=== PATIENT | male | born 1990 | race Caucasian/White ===

== ENCOUNTER 2023-11-20 17:04 | Outpatient (REF) | payer BC, SELFPAY ==
[2023-11-20 17:16] LABS: MANUAL DIFF FLAG NO
[2023-11-20 17:40] LABS: Basophils Percent Auto 0.5 % (0-2); Eosinophils Absolute Auto 0.1 X10*3/uL (0.0-0.4); Eosinophils Percent Auto 0.8 % (0-4); Hematocrit 43.9 % (42.0-52.0); Hemoglobin 14.9 g/dl (14.0-18.0); Imm Gran Abs Auto 0.02 X10*3/uL (0.00-0.03); Imm Gran Pct Auto 0.3 % (0.0-0.4); Lymphocytes Absolute Auto 1.2 X10*3/uL (1.2-4.9); Mean Corpuscular HGB Conc 33.9 g/dl (31.0-36.0); Mean Corpuscular Hemoglobin 33.6 pg (27.0-33.0); Mean Corpuscular Volume 98.9 fL (80.0-98.0); Mean Platelet Volume 10.3 fL (9.4-12.4); Monocytes Absolute Auto 0.4 X10*3/uL (0.1-1.2); Monocytes Percent Auto 6.6 % (2-11); Neutrophils Absolute Auto 4.2 x10*3/uL (2.0-8.3); Neutrophils Percent Auto 70.8 % (45-73); Platelet Count 242 X10*3/uL (160-400); Red Blood Count 4.44 X10*6/uL (4.60-5.80); Red Cell Distribution Width 13.2 % (11.0-16.0); White Blood Count 5.9 X10*3/uL (4.8-10.8)
[2023-11-20 18:12] LABS: Alanine Aminotransferase 12 U/L (0-40); Albumin Level 4.7 g/dL (3.5-5.0); Alkaline Phosphatase 81 U/L (39-117); Aspartate Amino Transferase 22 U/L (5-37); Bilirubin Direct 0.4 mg/dL (0.0-0.5); Bilirubin Total 1.6 mg/dL (0.0-1.0); Total Protein 7.8 g/dL (6.5-8.0)
[2023-11-20 18:34] LABS: Vitamin B12 415 pg/mL (200-900)
== END 2023-11-20 17:05 | disposition home or self-care (01) ==
LOC: HO.LAB 17:04
PROVIDERS: PCP Internal Medicine; Visit Provider Internal Medicine
DX: K50.012 Crohn's disease of small intestine with intestinal obstruction (principal)
CPT/HCPCS: 36415; 80076; 80299; 82607; 85025

== ENCOUNTER 2024-07-29 16:51 | Outpatient (REF) | payer BC, SELFPAY ==
[2024-07-29 17:08] LABS: MANUAL DIFF FLAG NO
[2024-07-29 17:28] LABS: Basophils Percent Auto 0.4 % (0-2); Eosinophils Absolute Auto 0.1 X10*3/uL (0.0-0.4); Eosinophils Percent Auto 0.7 % (0-4); Hematocrit 41.4 % (42.0-52.0); Hemoglobin 14.5 g/dl (14.0-18.0); Imm Gran Abs Auto 0.04 X10*3/uL (0.00-0.03); Imm Gran Pct Auto 0.6 % (0.0-0.4); Lymphocytes Absolute Auto 1.2 X10*3/uL (1.2-4.9); Lymphocytes Percent Auto 17.5 % (20-40); Mean Corpuscular Hemoglobin 34.1 pg (27.0-33.0); Mean Corpuscular Volume 97.4 fL (80.0-98.0); Mean Platelet Volume 9.6 fL (9.4-12.4); Monocytes Absolute Auto 0.4 X10*3/uL (0.1-1.2); Monocytes Percent Auto 5.1 % (2-11); Neutrophils Absolute Auto 5.3 x10*3/uL (2.0-8.3); Neutrophils Percent Auto 75.7 % (45-73); Platelet Count 277 X10*3/uL (160-400); Red Blood Count 4.25 X10*6/uL (4.60-5.80); Red Cell Distribution Width 13.3 % (11.0-16.0)
[2024-07-29 18:06] LABS: Alanine Aminotransferase 16 U/L (0-40); Albumin Level 4.6 g/dL (3.5-5.0); Alkaline Phosphatase 78 U/L (39-117); Anion Gap 13 (12-20); Aspartate Amino Transferase 22 U/L (5-37); Bilirubin Total 1.6 mg/dL (0.0-1.0); Blood Urea Nitrogen 12 mg/dL (9-16); Carbon Dioxide 28 mmol/L (22-29); Chloride 104 mmol/L (96-108); Cholesterol 184 mg/dL (<200); Estimated Glomerular Filt Rate > 60; Glucose Random 93 mg/dL (60-115); Potassium 3.8 mmol/L (3.3-5.1); Sodium 141 mmol/L (135-145); Total Protein 7.6 g/dL (6.5-8.0)
--- OUTSIDE RECORDS SUMMARY | 2024-07-30 03:13 | XMS_ITS ---
Author Organization [facility] Address [address] [place] [address] [place] [address] Care Team Providers Care Helper Marble Finisher Name Role Phone Garo Mcknight MD Primary Care Provider J Luis Pelaez [phone] ALLERGIES No Known Allergies REASON FOR VISIT Patient presents today for crohn's MEDICATIONS Medication SIG (Take, Route, Fr equency, Duration) Notes Start Date End Date Status Tylenol 325 MG 1 tablet as needed O rally every 4 hrs PRN Active azaTHIOprine 75 MG 2 Orally Daily 01/14/2016 Active VITAL SIGNS BMI 24.95 kg/m2 06/03/2024 Blood pressure systolic 000 mm Hg 06/03/20 24 Blood pressure diastolic 00 mm Hg 024 Height 72.25 in 06/03/2024 Temperature 97.1 degrees Fahrenheit 06/03/20 24 Weight 185 lb 4 oz lbs 06/03/2024 Encounters Encounter Location Date Provider Diagnosis [facility] [address] [place] [phone] 06/03/2024 J Luis Trivedi Crohns disease of small intestine without complication K50.00 ASSESSMENTS Encounter Date Diagnosis Assessment Notes Treatment Notes Treatment Clinical Notes 06/03/2024 Crohns disease of small intestine without complication (ICD-10 - K50.00) Continue a low roughage diet--avoid raw vegetables and salads PLAN OF TREATMENT Medication Medication Name Sig Start Date Stop Date Notes azaTHIOprine 75 MG 2 Orally Daily 01/14/2016 Treatment Notes Assessment Notes Crohns disease of small inte manoj without complication Continue a low roughage diet--avoid ra w vegetables and salads Pending Test Test Name Order Date LIVER PROFILE 06/03/2024 CBC w DIFF 06/03/2024 Next Appt Details Follow Up: Spring 2024, Reas on: Provider Name:J Luis Trivedi , 12/23/2024 04:20:00 PM, [address], [address], [place], [address], Progress Notes * Examination Category Sub-Category Detail Notes General Examination GENERAL APPEARANCE: pleasant , well nourished, well developed, in no acute distress EYES: sclera non-icteric NECK/THYROID: no cervical lymphade nopathy, neck supple HEART: S1, S2 normal LUNGS: clear to auscultatio n bilaterally ABDOMEN: normal bowel sounds, no guarding or rigidity, no hepatosplenomegaly, no masses palpable, soft, nondistended, nontender NEUROLOGIC: alert and oriented SKIN: nonjaundiced, no spi ebonie angiomata. EXTREMITIES: no edema ORAL CAVITY: mucosa moist
--- OUTSIDE RECORDS SUMMARY | 2024-07-30 03:14 | XMS_ITS | Patient Health Record ---
Author Organization [facility] Address [address] [place] [address] Care Team Providers Care Integration Specialist Name Role Phone Garo Mcknight MD Primary Care Provider J Luis Pelaez Unavailable [phone] ALLERGIES No Known Allergies RESULTS Component Value Reference Range Notes Vitamin B12 Reviewed date:11/20/2023 07:51:59 PM Interpretation: Performing Lab:[facility], [address] [place] [phone] Notes/Report: Vitamin B12 415 200-900 pg/mL NORMAL 200-900 PG/ML INDETERMINATE 160-199 PG/ML DEFICIENT < 160 PG/ML Prom Thiopurine Metabolites Reviewed date:11/30/2023 12:59:01 AM Interpretation: Performing Lab:[facility], [address] [place] [phone] Notes/Report: Prom Thiopurine Metabolites SEE NOTE SEE SCANNED RESULTS IN EMR Complete Blood Count Auto Di ff Reviewed date:11/30/2023 12:59:41 AM Interpretation: Performing Lab:[facility], [address] [place] [phone] Notes/Report: White Blood Count 5.9 4.8-10.8 X10*3/uL Red Blood Count 4.44 4.60-5.80 X10*6/uL Hemoglobin 14.9 14.0-18.0 g/dl Hematocrit 43.9 42.0-52.0 % Mean Corpuscular Volume 98.9 80.0-98.0 fL Mean Corpuscular Hemoglobin 33.6 27.0-33.0 pg Mean Corpuscular HGB Conc 33.9 31.0-36.0 g/dl Red Cell Distribution Width 13.2 11.0-16.0 % Platelet Count 242 160-400 X10*3/uL Mean Platelet Volume 10.3 9.4-12.4 fL Neutrophils Percent Auto 70.8 45-73 % Imm Gran Pct Auto 0.3 0.0-0.4 % Lymphocytes Percent Auto 21.0 20-40 % Monocytes Percent Auto 6.6 2-11 % Eosinophils Percent Auto 0.8 0-4 % Basophils Percent Auto 0.5 0-2 % NRBC Pct Auto 0.0 0.0-0.2 /100WBC Neutrophils Absolute Auto 4.2 2.0-8.3 x10*3/u L Imm Gran Abs Auto 0.02 0.00-0.03 X10*3/uL Lymphocytes Absolute Auto 1.2 1.2-4.9 X10*3/u L Monocytes Absolute Auto 0.4 0.1-1.2 X10*3/uL Eosinophils Absolute Auto 0.1 0.0-0.4 X10*3/u L Basophils Absolute Auto 0.0 0.0-0.2 X10*3/uL NRBC Abs Auto 0.000 0.0-0.012 X10*3/uL Liver Panel Reviewed date:11/20/2023 06:17:01 PM Interpretation: Performing Lab:[facility], [address] [place] [phone] Notes/Report: Bilirubin Total 1.6 0.0-1.0 mg/dL Bilirubin Direct 0.4 0.0-0.5 mg/dL Aspartate Amino Transferase 22 5-37 U/L Alanine Aminotransferase 12 0-40 U/L Total Protein 7.8 6.5-8.0 g/dL Albumin Level 4.7 3.5-5.0 g/dL Alkaline Phosphatase 81 39-117 U/L REASON FOR REFERRAL No Information MEDICATIONS Medication SIG (Take, Route, Fr equency, Duration) Notes Start Date End Date Status Tylenol 325 MG 1 tablet as needed O rally every 4 hrs PRN Active azaTHIOprine 75 MG 2 Orally Daily 01/14/2016 Active IMMUNIZATIONS Vaccine Route Administration Date Status Comme nts Influenza Unknown 06/29/2020 Refused Influenza Unknown 05/22/2023 Refused Influenza Unknown 11/20/2023 Refused SOCIAL HISTORY Sex Assigned At : Social History Observation Description Sex Assigned At Unknown PROBLEMS Problem Type ICD Code Onset Dates Problem Status W/U Status Risk SNOMED Code Notes Problem Crohn's disease of small intestine without complications (K50.00) Active confirmed 45687048 Problem Crohn's disease of small intestine with intestinal obstruction (K50.012) Active confirmed 90616096 Problem Encounter for therapeutic drug level monitoring (Z51.81) Active confirmed 411699028 Problem Crohns disease of small intestine without complication (K50.00) Active confirmed 16638762 Problem Crohn's disease of small intestine without complication (K50.00) Active confirmed 06966140 Problem Crohn's disease of small intestine with complication (K50.019) Active confirmed 11210785 VITAL SIGNS Temperature 97.1 degrees Fahrenheit 06/03/2024 Blood pressure diastolic 00 mm Hg 06/03/2024 Height 72.25 in 06/03/2024 Blood pressure systolic 000 mm Hg 06/03/2024 Weight 185 lb 4 oz lbs 06/03/2024 BMI 24.95 kg/m2 06/03/2024 Encounters Encounter Location Date Provider Diagnosis [facility] [address] [place] [phone] 11/20/2023 J Luis Trivedi Crohn's disease of small intestine with intestinal obstruction K50.012 [facility] [address] [place] [phone] 06/03/2024 J Luis Trivedi Crohns disease of small intestine without complication K50.00 ASSESSMENTS Encounter Date Diagnosis Assessment Notes Treatment Notes Treatment Clinical Notes 11/20/2023 Crohn's disease of small intestine with intestinal obstruction (ICD-10 - K50.012) Continue the Azathioprine with two of the 75mg pills daily 06/03/2024 Crohns disease of small intestine without complication (ICD-10 - K50.00) Continue a low roughage diet--avoid raw vegetables and salads PLAN OF TREATMENT Pending Test Test Name Order Date LIVER PROFILE 08/04/2013 LIVER PROFILE 01/13/2019 LIVER PROFILE 11/20/2021 LIVER PROFILE 12/16/2014 LIVER PROFILE 09/19/2022 LIVER PROFILE 05/09/2012 LIVER PROFILE 02/15/2021 LIVER PROFILE 06/03/2024 LIVER PROFILE 06/13/2016 LIVER PROFILE 06/29/2020 LIVER PROFILE 02/02/2014 LIVER PROFILE 02/01/2016 LIVER PROFILE 12/18/2017 LIVER PROFILE 04/26/2015 LIVER PROFILE 05/22/2023 LIVER PROFILE 03/10/2020 LIVER PROFILE 04/05/2022 LIVER PROFILE 03/31/2013 LIVER PROFILE 08/21/2021 LIVER PROFILE 05/28/2014 LIVER PROFILE 05/18/2016 LIVER PROFILE 01/14/2017 LIVER PROFILE 11/20/2023 CRP 03/10/2020 CBC w DIFF 03/10/2020 CBC w DIFF 05/18/2016 CBC w DIFF 01/14/2017 CBC w DIFF 11/20/2023 CBC w DIFF 08/04/2013 CBC w DIFF 01/13/2019 CBC w DIFF 11/20/2021 CBC w DIFF 12/16/2014 CBC w DIFF 09/19/2022 CBC w DIFF 05/09/2012 CBC w DIFF 02/15/2021 CBC w DIFF 06/03/2024 CBC w DIFF 06/13/2016 CBC w DIFF 06/29/2020 CBC w DIFF 02/02/2014 CBC w DIFF 02/01/2016 CBC w DIFF 12/18/2017 CBC w DIFF 04/26/2015 CBC w DIFF 12/31/2020 CBC w DIFF 05/22/2023 CBC w DIFF 04/05/2022 CBC w DIFF 03/31/2013 CBC w DIFF 08/21/2021 CBC w DIFF 05/28/2014 SED RATE (ESR) 03/10/2020 PROMETHEUS THIOPURINE METABOLITES (TPMT) 05/18/2016 PROMETHEUS THIOPURINE METABOLITES (TPMT) 01/14/2017 PROMETHEUS THIOPURINE METABOLITES (TPMT) 01/13/2019 PROMETHEUS THIOPURINE METABOLITES (TPMT) 06/13/2016 PROMETHEUS THIOPURINE METABOLITES (TPMT) 12/18/2017 PROMETHEUS THIOPURINE METABOLITES (TPMT) 12/11/2015 PROMETHEUS THIOPURINE METABOLITES (TPMT) 12/31/2020 PROMETHEUS TPMT ENZYME 12/11/2015 PROMETHEUS TPMT GENETICS 12/11/2015 Liver Panel 12/31/2020 Vitamin B12 04/05/2022 Prom Thiopurine Metabolites 11/20/2021 Next Appt Details Provider Name:J Luis Trivedi , 12/23/2024 04:20:00 PM, [address], [address], [place], [address], Insurance Providers Payer Name Payer Address Payer Phone Subscriber Number Group Number Insured Name Patient Relationship to Insured Coverage Start Date Coverage End Date [facility] [address] [place], [place] [id number] [phone] [id number] PAUL RICH Self - patient is the insured MEDICAL (GENERAL) HISTORY Medical History History ICD Code Crohn's disease-dx'd in 02/05 09 with colonoscopy revealing ileal involvement, but a normal colon. He was on a course of prednisone at that time, but started azathioprine in 01/2009 Denies SD,DM,CVA,Lung disease,renal dise ase Small bowel series 04/2013 wi th active Crohn's, ileal fistulae, and some narrowing of TI-no obstruction--started on Humira injections in fall but stopped them on his own in approx. 01/2014. His [facility] labs showed him to have normal enzyme activity for the azathioprine. He was hospitalized in November of 2015 with a flare of his Crohn's disease that responded well to a course of steroids Flare of his Crohn's disease in summer after he was off his azathioprine(he ran out of it). He was treated with a course of prednisone and restarted on his azathioprine at that time with good results Surgical History Surgery Date(Month/Year)
--- OUTSIDE RECORDS SUMMARY | 2024-07-30 03:14 | XMS_ITS ---
Author Organization [facility] Address [address] [place] [address] Care Team Providers Care Facility Service Manager Name Role Phone Garo Mcknight MD Primary Care Provider J Luis Pelaez Unavailable [phone] ALLERGIES No Known Allergies RESULTS Component Value Reference Range Notes Vitamin B12 Reviewed date:11/20/2023 07:51:59 PM Interpretation: Performing Lab:[facility], [address] [place] [phone] Notes/Report: Vitamin B12 415 200-900 pg/mL NORMAL 200-900 PG/ML INDETERMINATE 160-199 PG/ML DEFICIENT < 160 PG/ML Prom Thiopurine Metabolites Reviewed date:11/30/2023 12:59:01 AM Interpretation: Performing Lab:[facility], [address] [place] [phone] Notes/Report: Prom Thiopurine Metabolites SEE NOTE SEE SCANNED RESULTS IN EMR REASON FOR VISIT Patient presents today for crohn's MEDICATIONS Medication SIG (Take, Route, Fr equency, Duration) Notes Start Date End Date Status Tylenol 325 MG 1 tablet as needed O rally every 4 hrs PRN Active azaTHIOprine 75 MG 2 Orally QD 01/14/2016 Active IMMUNIZATIONS Vaccine Route Administration Date Status Comme nts Influenza Unknown 11/20/2023 Refused VITAL SIGNS BMI 24.91 kg/m2 11/20/2023 Blood pressure systolic 000 mm Hg 11/20/19 24 Blood pressure diastolic 00 mm Hg 024 Height 72.25 in 11/20/2023 Temperature 97.3 degrees Fahrenheit 11/20/19 24 Weight 185 lbs 11/20/2023 Encounters Encounter Location Date Provider Diagnosis [facility] [address] [place] [address] 11/20/2023 J Luis Trivedi Crohn's disease of small intestine with intestinal obstruction K50.012 ASSESSMENTS Encounter Date Diagnosis Assessment Notes Treatment Notes Treatment Clinical Notes 11/20/2023 Crohn's disease of small intestine with intestinal obstruction (ICD-10 - K50.012) Continue the Azathioprine with two of the 75mg pills daily PLAN OF TREATMENT Treatment Notes Assessment Notes Crohn's disease of small int estine with intestinal obstruction Continue the Azathioprine with two of th e 75mg pills daily Pending Test Test Name Order Date LIVER PROFILE 11/20/2023 CBC w DIFF 11/20/2023 Next Appt Details Follow Up: 6 Months, Reason: Provider Name:J Luis Trivedi , 12/23/2024 04:20:00 PM, [address], [address], [place], [address], Progress Notes * Examination Category Sub-Category Detail [...]
--- OUTSIDE RECORDS SUMMARY | 2024-07-30 03:14 | XMS_ITS ---
Author Organization [facility] Address [address] [place] [address] Care Team Providers Care Manager Play Name Role Phone Garo Mcknight MD Primary Care Provider J Luis Pelaez Unavailable [phone] ALLERGIES No Known Allergies REASON FOR VISIT Patient presents today for crohn's MEDICATIONS Medication SIG (Take, Route, Fr equency, Duration) Notes Start Date End Date Status azaTHIOprine 75 MG 2 Orally QD 01/14/2016 Active Tylenol 325 MG 1 tablet as needed O rally every 4 hrs PRN Active IMMUNIZATIONS Vaccine Route Administration Date Status Comme nts Influenza Unknown 05/22/2023 Refused VITAL SIGNS BMI 25.32 kg/m2 05/22/2023 Blood pressure systolic 000 mm Hg 05/22/20 23 Blood pressure diastolic 00 mm Hg 023 Height 72.25 in 05/22/2023 Temperature 98.2 degrees Fahrenheit 05/22/20 23 Weight 188 lbs 05/22/2023 Encounters Encounter Location Date Provider Diagnosis [facility] [address] [place] [phone] 05/22/2023 J Luis Trivedi Crohns disease of small intestine without complication K50.00 and Encounter for therapeutic drug level monitoring Z51.81 ASSESSMENTS Encounter Date Diagnosis Assessment Notes Treatment Notes Treatment Clinical Notes 05/22/2023 Crohns disease of small intestine without complication (ICD-10 - K50.00) Continue the Azathioprine 150mg daily Avoid Ibuprofen and other NSAIDs. Tyenol/Acetaminophe n is OK 05/22/2023 Encounter for therapeutic drug level monitoring (ICD-10 - Z51.81) PLAN OF TREATMENT Treatment Notes Assessment Notes Crohns disease of small inte manoj without complication Continue the Azathioprine 150mg daily Avoid Ibuprofen and other NSAIDs. Tyenol/Acetaminophen is OK Pending Test Test Name Order Date LIVER PROFILE 05/22/2023 CBC w DIFF 05/22/2023 Next Appt Details Follow Up: 6 Months, Reason: Provider Name:J Luis Trivedi , 12/23/2024 04:20:00 PM, [address], [address], [place], [address], Progress Notes * Examination Category Sub-Category Detail [...]
== END 2024-07-29 16:52 | disposition home or self-care (01) ==
LOC: HO.LAB 16:51
PROVIDERS: PCP Internal Medicine; Visit Provider Internal Medicine
DX: K50.90 Crohn's disease, unspecified, without complications (principal)
CPT/HCPCS: 36415; 80053; 82465; 85025

== ENCOUNTER 2024-12-22 11:42 | Outpatient (REF) | payer BC, SELFPAY ==
[2024-12-22 11:50] LABS: MANUAL DIFF FLAG NO
[2024-12-22 12:18] LABS: Basophils Percent Auto 0.3 % (0-2); Eosinophils Absolute Auto 0.1 X10*3/uL (0.0-0.4); Eosinophils Percent Auto 0.9 % (0-4); Hematocrit 41.6 % (42.0-52.0); Hemoglobin 14.6 g/dl (14.0-18.0); Imm Gran Abs Auto 0.02 X10*3/uL (0.00-0.03); Imm Gran Pct Auto 0.3 % (0.0-0.4); Lymphocytes Absolute Auto 0.8 X10*3/uL (1.2-4.9); Lymphocytes Percent Auto 13.7 % (20-40); Mean Corpuscular HGB Conc 35.1 g/dl (31.0-36.0); Mean Corpuscular Hemoglobin 34.2 pg (27.0-33.0); Mean Corpuscular Volume 97.4 fL (80.0-98.0); Mean Platelet Volume 9.5 fL (9.4-12.4); Monocytes Absolute Auto 0.3 X10*3/uL (0.1-1.2); Neutrophils Absolute Auto 4.6 x10*3/uL (2.0-8.3); Neutrophils Percent Auto 79.8 % (45-73); Platelet Count 280 X10*3/uL (160-400); Red Blood Count 4.27 X10*6/uL (4.60-5.80); Red Cell Distribution Width 13.4 % (11.0-16.0); White Blood Count 5.8 X10*3/uL (4.8-10.8)
[2024-12-22 12:58] LABS: Alanine Aminotransferase 14 U/L (0-40); Albumin Level 4.6 g/dL (3.5-5.0); Aspartate Amino Transferase 20 U/L (5-37); Bilirubin Direct 0.4 mg/dL (0.0-0.5); Bilirubin Total 1.5 mg/dL (0.0-1.0); Total Protein 7.3 g/dL (6.5-8.0)
--- OUTSIDE RECORDS SUMMARY | 2024-12-22 13:21 | XMS_ITS ---
Author Organization [facility] Address [address] [place] [address] Care Team Providers Care Turf Farmer Name Role Phone Garo Mcknight MD Primary Care Provider J Luis Pelaez Unavailable [phone] Allergies No Known Allergies REASON FOR VISIT Patient presents today for crohn's Medications Medication SIG (Take, Route, Fr equency, Duration) Notes Start Date End Date Status Tylenol 325 MG 1 tablet as needed O rally every 4 hrs PRN Active azaTHIOprine 75 MG 2 Orally Daily 01/14/2016 Active Vital Signs Temperature 97.1 degrees Fahrenheit 06/03/20 24 Blood pressure systolic 000 mm Hg 06/03/20 24 Blood pressure diastolic 00 mm Hg 024 Height 72.25 in 06/03/2024 Weight 185 lb 4 oz lbs 06/03/2024 BMI 24.95 kg/m2 06/03/2024 Encounters Encounter Location Date Provider Diagnosis [facility] [address] [place] [id number] 06/03/2024 J Luis Trivedi Crohns disease of small intestine without complication K50.00 Assessments Encounter Date Diagnosis (ICD Code) Assessment Notes Treatment Notes Treatment Clinical Notes Section Notes 06/03/2024 Crohns disease of small intestine without complication (ICD-10 - K50.00) Continue a low roughage diet--avoid raw vegetables and salads Overall, Parmjit appears to be doing well in regard to his underlying Crohn's disease on his current regimen of the azathioprine. He is not having any adverse effects based on his laboratories earlier in the year, his clinical history, and his excellent clinical appearance. He has not needed any prednisone for about 4 years now. I did advise him to continue the azathioprine at the current regimen of 150 mg daily but have given him a new lab slip to do laboratories as soon as possible in regard to a CBC and liver profile, and then do those laboratories every 2 months thereafter to be sure things are remaining stable in that regard. I did remind him to stay on a low roughage diet given his small bowel Crohn's Disease. If things remains stable I will plan to see Parmjit in the spring for a followup visit. I did advise him to contact me prior to that if he has any problems or questions I can be of assistance with. Parmjit was comfortable with this plan. Thank you again for allowing me to participate in Parmjit's care. I shall continue to keep you advised of his progress. Plan Of Treatment Medication Medication Name Sig Start Date Stop [...] Luis Trivedi , 12/23/2024 04:20:00 PM, [address], [address], [place], [address], Progress Notes * PAUL RICHDOB: 0 (33 yo M)Acc No.[id number]:06/03/2024 Progress Notes Patient:?PAUL RICH Provider:?J Luis Trivedi MD :1990???Age:33 Y???Sex:Male Arnoldo e:06/03/2024 Address:[address] [place] [address] Pcp:Garo Mcknight MD Subjective: * Chief Complaints: * ???Patient presents today fo r crohn's * HPI: ???incontinence:? I saw Parmjit in followup today in regard to his underlying history of Crohn's disease. ?Since I last saw Parmjit in November he has been feeling well on his regimen of azathioprine 150 mg daily. He enjoys a good appetite and denies any problems with abdominal pain, abdominal distention, nausea, vomiting, constipation, nor significant diarrhea. In general, his bowel movements are regular and without any signs of bleeding. He denies any significant heartburn, dysphagia, early satiety, or jaundice. He denies any fevers, jaundice, nor any other signs or history of infection. ?His laboratories in November after the office visit showed a stable CBC with a hemoglobin of 14.9 and white blood cell count 5.9 with a normal differential, normal liver profile, normal B12 level, and a low therapeutic level of the azathioprine metabolite. Given his stable course I did not feel that the dose of the azathioprine had to be increased at that time. * ROS:?General/Constitutional:?Change in appetite?denies.?Chills?denies.?Fatigue?denies.?Ophthalmologic:?Patient denies? Negative..?ENT:?Patient denies?Negative..?Respiratory:?Patient denies?No coughing/hemoptysis..?Cardiovascular:?Patient denies? No chest pain/orthopnea..?Gastrointestinal:?Comments?See HPI for details.?Genitourinary:?Patient denies? No dysuria/hematuria..?Musculoskeletal:?Patient denies? No specific arthralgias/myalgias..?Skin:?Patient denies?No rash/pruritus..?Neurologic:?Patient denies? No headaches/seizures..?Psychiatric:?Patient denies?Negative..? * Medical History:? * Surgical History:?No Surgica l History documented. * Hospitalization/Major Diagno stic Procedure:?No Hospitalization History. * Family History:?Father: rosi david?Mother: alive.?Paternal Grand Father: , diagnosed with Diabetes.?Paternal Grand Mother: alive, diagnosed with Diabetes.? Patient denies family history of colorectal cancer, colon polyps or liver ds. * Social History:?Tobacco Use:?Tobacco Use/Smoking?Are you a: nonsmoker.?Drugs/Alcohol:?Alcohol Screen?Points: 0, Interpretation: Negative.?Miscellaneous:?Marital status: single. 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 ???Patient recieved his Masters in Criminal Justice in 07/2013. Nonsmoker, no significant alcohol. * Medications:?TakingTylenol 3 25 MG Tablet 1 tablet as needed Orally every 4 hrs, Notes: PRNazaTHIOprine 75 MG Tablet 2 Orally QDMedication List reviewed and reconciled with the patientTaking Tylenol 325 MG Tablet 1 tablet as needed Orally every 4 hrs, Notes: PRNTaking azaTHIOprine 75 MG Tablet 2 Orally QDMedication List reviewed and reconciled with the patient * Allergies:?N.K.D.A.yes[Aller gies Verified] Objective: * Vitals:?Wt: 185 lb 4 oz, Ht: 72.25 in, BMI:24.95 Index, BP: 000/00 mm Hg, Temp: 97.1. * Examination: ???General Examination: ?GENERAL APPEARANCE:?pleasant, well nourished, well developed, in no acute distress.?EYES:?sclera non-icteric.?ORAL CAVITY:?mucosa moist.?NECK/THYROID:?no cervical lymphadenopathy, neck supple.?SKIN:?nonjaundiced, no spider angiomata..?HEART:?S1, S2 normal.?LUNGS:?clear to auscultation bilaterally.?ABDOMEN:?normal bowel sounds, no guarding or rigidity, no hepatosplenomegaly, no masses palpable, soft, nondistended, nontender.?EXTREMITIES:?no edema.?NEUROLOGIC:?alert and oriented.? Assessment: * Assessment: 1.?Crohns disease of small i ntestine without complication - K50.00 (Primary)? Overall, Parmjit appears to be d oing well in regard to his underlying Crohn's disease on his current regimen of the azathioprine. He is not having any adverse effects based on his laboratories earlier in the year, his clinical history, and his excellent clinical appearance. He has not needed any prednisone for about 4 years now. I did advise him to continue the azathioprine at the current regimen of 150 mg daily but have given him a new lab slip to do laboratories as soon as possible in regard to a CBC and liver profile, and then do those laboratories every 2 months thereafter to be sure things are remaining stable in that regard. I did remind him to stay on a low roughage diet given his small bowel Crohn's Disease. If things remains stable I will plan to see Parmjit in the spring for a followup visit. I did advise him to contact me prior to that if he has any problems or questions I can be of assistance with. Parmjit was comfortable with this plan. Thank you again for allowing me to participate in Parmjit's care. I shall continue to keep you advised of his progress. Plan: * Treatment: ?LAB: CBC w DIFF* Do every other month Notes: Continue a low roughage diet--avoid raw vegetables and salads?? 2.?Others? Continue azaTHIOprine Tablet, 75 MG, 2, Orally, Daily.?? * Procedure Codes:?1036F TOBAC CO NON-[id number] BP SCR NOT PRFRM REC REASON NOS * Preventive Medicine:? ??Counseling:?Care goal follow-up plan:?Above Normal BMI Follow-up?Giving encouragement to exercise,?BMI management provided?Yes.? * Follow Up:?Spring 2024 * * Sign off status: Completed true * Provider:?J Luis Trivedi MD Date:? 024 Generated for Padmini cruz/Dejuan/Willian on:?12/22/2024 01:21 PM EDT History and Physical Notes * HPI (History of Present Illness) Category Sub-Category Detail Notes Category Not es incontinence I saw Parmjit in followup today in regard to his underlying history of Crohn's disease. Since I last saw Parmjit in November he has been feeling well on his regimen of azathioprine 150 mg daily. He enjoys a good appetite and denies any problems with abdominal pain, abdominal distention, nausea, vomiting, constipation, nor significant diarrhea. In general, his bowel movements are regular and without any signs of bleeding. He denies any significant heartburn, dysphagia, early satiety, or jaundice. He denies any fevers, jaundice, nor any other signs or history of infection. His laboratories in November after the office visit showed a stable CBC with a hemoglobin of 14.9 and white blood cell count 5.9 with a normal differential, normal liver profile, normal B12 level, and a low therapeutic level of the azathioprine metabolite. Given his stable course I did not feel that the dose of the azathioprine had to be increased at that time. Examination Category Sub-Category Detail Notes Category Not es General Examination GENERAL APPEARANCE: pleasant , well [...]
--- OUTSIDE RECORDS SUMMARY | 2024-12-22 13:21 | XMS_ITS | Patient Health Record ---
Author Organization [facility] Address [address] [place] [address] Care Team Providers Care Rigging Loft Repairer Name Role Phone Garo Mcknight MD Primary Care Provider Jim chinchilla Trivedi J Luis Unavailable [phone] Allergies No Known Allergies Results Component Value Reference Range Notes Complete Blood Count Auto Di ff (Not yet reviewed by provider) Interpretation: Performing Lab:[facility], [address] [place] [phone] Notes/Report: White Blood Count 5.8 4.8-10.8 X10*3/uL Red Blood Count 4.27 4.60-5.80 X10*6/uL Hemoglobin 14.6 14.0-18.0 g/dl Hematocrit 41.6 42.0-52.0 % Mean Corpuscular Volume 97.4 80.0-98.0 fL Mean Corpuscular Hemoglobin 34.2 27.0-33.0 pg Mean Corpuscular HGB Conc 35.1 31.0-36.0 g/dl Red Cell Distribution Width 13.4 11.0-16.0 % Platelet Count 280 160-400 X10*3/uL Mean Platelet Volume 9.5 9.4-12.4 fL Neutrophils Percent Auto 79.8 45-73 % Imm Gran Pct Auto 0.3 0.0-0.4 % Lymphocytes Percent Auto 13.7 20-40 % Monocytes Percent Auto 5.0 2-11 % Eosinophils Percent Auto 0.9 0-4 % Basophils Percent Auto 0.3 0-2 % NRBC Pct Auto 0.0 0.0-0.2 /100WBC Neutrophils Absolute Auto 4.6 2.0-8.3 x10*3/u L Imm Gran Abs Auto 0.02 0.00-0.03 X10*3/uL Lymphocytes Absolute Auto 0.8 1.2-4.9 X10*3/u L Monocytes Absolute Auto 0.3 0.1-1.2 X10*3/uL Eosinophils Absolute Auto 0.1 0.0-0.4 X10*3/u L Basophils Absolute Auto 0.0 0.0-0.2 X10*3/uL NRBC Abs Auto 0.000 0.0-0.012 X10*3/uL Reason For Referral No Information Medications Medication SIG (Take, Route, Fr equency, Duration) Notes Start Date End Date Status Tylenol 325 MG 1 tablet as needed O rally every 4 hrs PRN Active azaTHIOprine 75 MG 2 Orally Daily 01/14/2016 Active Immunizations Vaccine Route Administration Date Status Comme nts Influenza Unknown 06/29/2020 Refused Influenza Unknown 05/22/2023 Refused Influenza Unknown 11/20/2023 Refused Problems Problem Type SNOMED Code ICD Code Onset Dates Problem Status W/U Status Risk Notes Problem 92252427 Crohn's disease of small intestine without complications (K50.00) Active confirmed Problem 33899065 Crohn's disease of small intestine with intestinal obstruction (K50.012) Active confirmed Problem 169429724 Encounter for therapeutic drug level monitoring (Z51.81) Active confirmed Problem 16121909 Crohns disease o f small intestine without complication (K50.00) Active confirmed Problem 36721086 Crohn's disease of small intestine without complication (K50.00) Active confirmed Problem 82696956 Crohn's disease of small intestine with complication (K50.019) Active confirmed Vital Signs Temperature 97.1 degrees Fahrenheit 06/03/2024 Blood pressure diastolic 00 mm Hg 06/03/2024 Height 72.25 in 06/03/2024 Blood pressure systolic 000 mm Hg 06/03/2024 Weight 185 lb 4 oz lbs 06/03/2024 BMI 24.95 kg/m2 06/03/2024 Encounters Encounter Location Date Provider Diagnosis [facility] [address] [place] [address] 06/03/2024 J Luis Trivedi Crohns disease of [...] advised of his progress. Plan Of Treatment Pending Test Test Name Order Date LIVER PROFILE 02/02/2014 LIVER PROFILE 06/13/2016 LIVER PROFILE 11/20/2021 LIVER PROFILE 11/20/2023 LIVER PROFILE 03/10/2020 LIVER PROFILE 02/15/2021 LIVER PROFILE 01/14/2017 LIVER PROFILE 04/26/2015 LIVER PROFILE 09/19/2022 LIVER PROFILE 08/04/2013 LIVER PROFILE 05/09/2012 LIVER PROFILE 12/16/2014 LIVER PROFILE 01/13/2019 LIVER PROFILE 05/18/2016 LIVER PROFILE 06/03/2024 LIVER PROFILE 04/05/2022 LIVER PROFILE 02/01/2016 LIVER PROFILE 08/21/2021 LIVER PROFILE 05/22/2023 LIVER PROFILE 06/29/2020 LIVER PROFILE 05/28/2014 LIVER PROFILE 12/18/2017 LIVER PROFILE 03/31/2013 CRP 03/10/2020 CBC w DIFF 12/31/2020 CBC w DIFF 12/18/2017 CBC w DIFF 03/31/2013 CBC w DIFF 02/02/2014 CBC w DIFF 06/13/2016 CBC w DIFF 11/20/2021 CBC w DIFF 11/20/2023 CBC w DIFF 02/15/2021 CBC w DIFF 01/14/2017 CBC w DIFF 04/26/2015 CBC w DIFF 09/19/2022 CBC w DIFF 08/04/2013 CBC w DIFF 03/10/2020 CBC w DIFF 05/09/2012 CBC w DIFF 12/16/2014 CBC w DIFF 01/13/2019 CBC w DIFF 05/18/2016 CBC w DIFF 06/03/2024 CBC w DIFF 04/05/2022 CBC w DIFF 02/01/2016 CBC w DIFF 08/21/2021 CBC w DIFF 05/22/2023 CBC w DIFF 06/29/2020 CBC w DIFF 05/28/2014 SED RATE (ESR) 03/10/2020 PROMETHEUS THIOPURINE METABOLITES (TPMT) 12/31/2020 PROMETHEUS THIOPURINE METABOLITES (TPMT) 12/18/2017 PROMETHEUS THIOPURINE METABOLITES (TPMT) 06/13/2016 PROMETHEUS THIOPURINE METABOLITES (TPMT) 01/14/2017 PROMETHEUS THIOPURINE METABOLITES (TPMT) 12/11/2015 PROMETHEUS THIOPURINE METABOLITES (TPMT) 01/13/2019 PROMETHEUS THIOPURINE METABOLITES (TPMT) 05/18/2016 PROMETHEUS TPMT ENZYME 12/11/2015 PROMETHEUS TPMT GENETICS 12/11/2015 Complete Blood Count Auto Diff 5 Liver Panel 12/31/2020 Vitamin B12 04/05/2022 Prom Thiopurine Metabolites 11/20/2021 Next Appt Details Provider Name:J Luis Trivedi , 12/23/2024 04:20:00 PM, [address] [place] [address], [facility] [address], [place], [address], Insurance Providers Payer Name Payer Address Payer Phone Subscriber Number Group Number Insured Name Patient Relationship to Insured Coverage Start Date Coverage End Date [facility] [address] [place], [place] [id number] PAUL RICH Self - patient is the insured Medical (General) History Medical History History ICD Code Crohn's disease-dx'd in 02/05 09 with colonoscopy revealing ileal involvement, but a normal colon. He was on a course of prednisone at that time, but started azathioprine in 01/2009 Denies VA,DM,CVA,Lung disease,renal dise ase Small bowel series 04/2013 [...]
--- OUTSIDE RECORDS SUMMARY | 2024-12-22 13:21 | XMS_ITS | Encounter Summary ---
Author Organization [facility] Address [address] [place] [phone] Phone Care Team Providers Care Hydroelectric Production Manager Name Role Phone Wilbur Nieto MD Primary Care Provider Jose amato Encounter Details Date Type Department Care Team (Late st Contact Info) Description 04/04/2017 Conversion Encounter [facility] - [address] [address] Social History Tobacco Use Types Packs/Day Years Used Date Smoking Tobacco: Never Assessed Sex and Gender Information Value Date Recorded Sex Assigned at Not on file Legal Sex Male 4:12 PM EDT Gender Identity Not on file Sexual Orientation Not on file documented as of this encounter Plan of Treatment Not on file documented as of this encounter Visit Diagnoses Not on filedocumented in this encounter Care Teams Hydroelectric Production Manager Relationship Specialty Start Date End Date Wilbur Nieto MD PCP - General 03/29/17 11/20/22 documented as of this encounter
--- OUTSIDE RECORDS SUMMARY | 2024-12-22 13:21 | XMS_ITS | Clinical Summary ---
Author Organization [facility] Address [address] [place] [phone] Phone Care Team Providers Care Commercial Loan Manager Name Role Phone Unavailable Primary Care Provider Unavailabl e Immunizations Immunization Administration Dates Next Due DTP 12/17/1994, 1,07/19/1990,1989,02/16/1990 Hep B, ped/adol 07/02/2001,12/30/2000,11/20/2000 Hib (PRP-T) 07/19/1990,03/19/1990 Influenza Split 06/23/2002,07/20/1999 Influenza, injectable, trivalent 005,06/15/2004,06/23/2002,1998 MMR 12/17/1994,03/19/1991 OPV 12/17/1994, 1,04/19/1990,1989 Td (adult) (MBL), 2 Lf tetan us toxoid, PF, adsorbed 07/02/2001 Family History Relation Name Status Comments Father Alive Father: Alive a nd well Mother Alive Mother: ? diabe víctor Social History Tobacco Use Types Packs/Day Years Used Date Smoking Tobacco: Never Assessed Sex and Gender Information Value Date Recorded Sex Assigned at Not on file Legal Sex Male 4:12 PM EDT Gender Identity Not on file Sexual Orientation Not on file Plan of Treatment Health Maintenance Due Date Last Done Comments DTaP,Tdap,and Td Vaccines (6 - Tdap) 07/03/2001 07/02/2001, 12/17/1994, 07/19/1991, Additional history exists Varicella Vaccines (1 of 2 - 13+ 2-dose series) 2002 Influenza Vaccines (#1) 2024 06/07/20 05, 06/15/2004, 06/23/2002, Additional history exists COVID-19 Vaccine ( season) 2024 HIB Vaccines Aged Out 07/19/1990, 03/19/1990 No lo nger eligible based on patient's age to complete this topic IPV Vaccines Completed 12/17/1994, 08/1990, 04/19/1990, Additional history exists MMR Vaccines Completed 12/17/1994, 03/19/1991 Hepatitis B Vaccines Completed 07/02/2001, 12/30/2000, 11/20/2000 HPV Vaccines Aged Out No longer eligi ble based on patient's age to complete this topic Hepatitis A Vaccines Aged Out No long er eligible based on patient's age to complete this topic Men B Vaccine Aged Out No longer elig ible based on patient's age to complete this topic Meningococcal Vaccine Aged Out No marlon marlee eligible based on patient's age to complete this topic Pneumococcal Vaccine Aged Out No long er eligible based on patient's age to complete this topic
--- OUTSIDE RECORDS SUMMARY | 2024-12-22 13:21 | XMS_ITS | Clinical Summary ---
Author Organization [facility] Address [address] [place] [address] Care Team Providers Care Senior Relationship Manager Name Role Phone Unavailable Primary Care Provider Unavailabl e Social History Tobacco Use Types Packs/Day Years Used Date Smoking Tobacco: Never Assessed Sex and Gender Information Value Date Recorded Sex Assigned at Not on file Legal Sex Male 6:37 PM EST Gender Identity Not on file Sexual Orientation Not on file Plan of Treatment Health Maintenance Due Date Last Done Comments DTaP,Tdap,and Td Vaccines (1 - Tdap) 2008 Hepatitis B Vaccines (1 of 3 - 19+ 3-dose series) 2008 COVID-19 Vaccine (2023-2 5 season) 2024 Influenza Vaccine (Season Ended) 2025 HIB Vaccines Aged Out No longer eligi ble based on patient's age to complete this topic HPV Vaccines Aged Out No longer eligi ble based on patient's age to complete this topic Hepatitis A Vaccines Aged Out No long er eligible based on patient's age to complete this topic IPV Vaccines Aged Out No longer eligi ble based on patient's age to complete this topic MMR Vaccines Aged Out No longer eligi ble based on patient's age to complete this topic Meningococcal ACWY Vaccine Aged Out N o longer eligible based on patient's age to complete this topic Meningococcal B Vaccine Aged Out No l onger eligible based on patient's age to complete this topic Pneumococcal Vaccine: Pediat rics (0 to 5 Years) and At-Risk Patients (6 to 64 Years) Aged Out No longer eligible b ased on patient's age to complete this topic RSV Immunization Patients Un ebonie 20 months Aged Out No longer eligible b ased on patient's age to complete this topic Varicella Vaccines Aged Out No longer eligible based on patient's age to complete this topic
--- OUTSIDE RECORDS SUMMARY | 2024-12-22 13:22 | XMS_ITS ---
Author Organization [facility] Address [address] [place] [address] Care Team Providers Care Mailroom Personnel Name Role Phone Garo Mcknight MD Primary Care Provider J Luis Pelaez Unavailable [phone] Allergies No Known Allergies Results Component Value Reference Range Notes Vitamin B12 Reviewed date:11/20/2023 07:51:59 PM Interpretation: Performing Lab:[facility], [address] [place] [phone] Notes/Report: Vitamin B12 415 200-900 pg/mL NORMAL 200-900 PG/ML INDETERMINATE 160-199 PG/ML DEFICIENT < 160 PG/ML Prom Thiopurine Metabolites Reviewed date:11/30/2023 12:59:01 AM Interpretation: Performing Lab:[facility], [address] [place] [phone] Notes/Report: Prom Thiopurine Metabolites SEE NOTE SEE SCANNED RESULTS IN EMR REASON FOR VISIT Patient presents today for crohn's Medications Medication SIG (Take, Route, Fr equency, Duration) Notes Start Date End Date Status Tylenol 325 MG 1 tablet as needed O rally every 4 hrs PRN Active azaTHIOprine 75 MG 2 Orally QD 01/14/2016 Active Immunizations Vaccine Route Administration Date Status Comme nts Influenza Unknown 11/20/2023 Refused Vital Signs Temperature 97.3 degrees Fahrenheit 11/20/19 24 Blood pressure systolic 000 mm Hg 11/20/19 24 Blood pressure diastolic 00 mm Hg 024 Height 72.25 in 11/20/2023 Weight 185 lbs 11/20/2023 BMI 24.91 kg/m2 11/20/2023 Encounters Encounter Location Date Provider Diagnosis [facility] [address] [place] [address] 11/20/2023 J Luis Trivedi Crohn's disease of small intestine with intestinal obstruction K50.012 Assessments Encounter Date Diagnosis (ICD Code) Assessment Notes Treatment Notes Treatment Clinical Notes Section Notes 11/20/2023 Crohn's disease of small intestine with intestinal obstruction (ICD-10 - K50.012) Continue the Azathioprine with two of the 75mg pills daily Overall, Parmjit appears quite well. His Crohn's disease remains in clinical remission on his current regimen of the azathioprine. He has not had any recent flare ups requiring prednisone and otherwise remains asymptomatic. I did advise him to certainly continue the azathioprine. However, I did review with him the need to check a CBC and liver profile as soon as possible, and also advised him that we need to do those every 2 months or so while on chronic azathioprine as well due to the risk of leukopenia with increased risk of infection and drug induced hepatitis. I have given him a lab slip to check a CBC and liver profile today, along with a B12 level and azathioprine metabolite levels. I told him to do these today across the street at the hospital lab. I've also given him a lab slip to do the CBC and liver profile every 2 months thereafter. Given his small bowel Crohn disease we also reviewed that he should stay on a relatively low residue diet to minimize the risk of obstruction. If things otherwise remain well I'll plan to see Parmjit in 6 months for followup visit. I did advise him to definitely call me before that if he has any problems or questions I can be of assistance with. Parmjit was comfortable with this plan. Thank you again for allowing me to participate in Parmjit's care. I shall continue to keep you advised of his progress. Plan Of Treatment Treatment Notes Assessment Notes Crohn's disease of small int estine with intestinal obstruction Continue the Azathioprine with two of th e 75mg pills daily Pending Test Test Name Order Date LIVER PROFILE 11/20/2023 CBC w DIFF 11/20/2023 Next Appt Details Follow Up: 6 Months, Reason: Provider Name:J Luis Trivedi , 12/23/2024 04:20:00 PM, [address], [address], [place], [address], Progress Notes * TREVA RICH: 0 (32 yo M)Acc No.[id number]:11/20/2023 Progress Notes Patient:?PAUL RICH Provider:?J Luis Trivedi MD :1990???Age:32 Y???Sex:Male Arnoldo e:11/20/2023 Address:[address] [place], [place] [id number] Pcp:Garo Mcknight MD Subjective: * Chief Complaints: * ???Patient presents today fo r crohn's * HPI: ???incontinence:? I saw Parmjit in followup today in regard to his underlying history of Crohn's disease. ?Since I last saw Parmjit in May of 2023 he reports that he has continued to feel very well. He remains on azathioprine 150 mg daily. He denies any difficulties with abdominal pain, abdominal distention, diarrhea, constipation, hematochezia, nor melena. He enjoys a good appetite, without any significant heartburn or dysphagia. He denies any jaundice nor weight loss. He denies any fevers nor any other signs of infection. ?He reports compliance with his azathioprine and is compliant with office visits. However, he has not done any blood work since 2021 at which time he had a normal liver profile and CBC. * ROS:?General/Constitutional:?Change in appetite?denies.?Chills?denies.?Fatigue?denies.?Ophthalmologic:?Patient denies? Negative..?ENT:?Patient denies?Negative..?Respiratory:?Patient denies?No coughing/hemoptysis..?Cardiovascular:?Patient denies? No chest pain/orthopnea..?Gastrointestinal:?Comments?See HPI for details.?Genitourinary:?Patient denies? No dysuria/hematuria..?Musculoskeletal:?Patient denies? No specific arthralgias/myalgias..?Skin:?Patient denies?No rash/pruritus..?Neurologic:?Patient denies? No headaches/seizures..?Psychiatric:?Patient denies?Negative..? * Medical History:? * Surgical History:?Denies Pas t Surgical History * Hospitalization/Major Diagno stic Procedure:?No Hospitalization History. * Family History:?Father: rosi fairchild.?Mother: alive.?Paternal Grand Father: , diagnosed with Diabetes.?Paternal Grand Mother: alive, diagnosed with Diabetes.? Patient denies family history of colorectal cancer, colon polyps or liver ds. * Social History:?Tobacco Use:?Tobacco Use/Smoking?Are you a: nonsmoker.?Drugs/Alcohol:?Alcohol Screen?Points: 0, Interpretation: Negative.?Miscellaneous:?Marital status: single. 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 ???Patient recieved his Masters in Criminal Justice [...] Allergies:?N.K.D.A.yes[Aller gies Verified] Objective: * Vitals:?Wt: 185 lbs, Ht: 72. 25 in, BMI:24.91 Index, BP: 000/00 mm Hg, Temp: 97.3. * Examination: ???General Examination: ?GENERAL APPEARANCE:?pleasant, well nourished, well developed, in no acute distress.?EYES:?sclera non-icteric.?ORAL CAVITY:?mucosa moist.?NECK/THYROID:?no cervical lymphadenopathy, neck supple.?SKIN:?nonjaundiced, no spider angiomata..?HEART:?S1, S2 normal.?LUNGS:?clear to auscultation bilaterally.?ABDOMEN:?normal bowel sounds, no guarding or rigidity, no hepatosplenomegaly, no masses palpable, soft, nondistended, nontender.?EXTREMITIES:?no edema.?NEUROLOGIC:?alert and oriented.? Assessment: * Assessment: 1.?Crohn's disease of small intestine with intestinal obstruction - K50.012 (Primary)? Overall, Parmjit appears quite w ell. His Crohn's disease remains in clinical remission on his current regimen of the azathioprine. He has not had any recent flare ups requiring prednisone and otherwise remains asymptomatic. I did advise him to certainly continue the azathioprine. However, I did review with him the need to check a CBC and liver profile as soon as possible, and also advised him that we need to do those every 2 months or so while on chronic azathioprine as well due to the risk of leukopenia with increased risk of infection and drug induced hepatitis. I have given him a lab slip to check a CBC and liver profile today, along with a B12 level and azathioprine metabolite levels. I told him to do these today across the street at the hospital lab. I've also given him a lab slip to do the CBC and liver profile every 2 months thereafter. Given his small bowel Crohn disease we also reviewed that he should stay on a relatively low residue diet to minimize the risk of obstruction. If things otherwise remain well I'll plan to see Parmjit in 6 months for followup visit. I did advise him to definitely call me before that if he has any problems or questions I can be of assistance with. Parmjit was comfortable with this plan. Thank you again for allowing me to participate in Parmjit's care. I shall continue to keep you advised of his progress. Plan: * Treatment: ?LAB: CBC w DIFF* Gail Raya 11/20/2023 05:00:05 PM EDT > Please have these labs done every other month. Thanks ?LAB: Vitamin B12* ? Value Reference Range ?Vitamin B12 415 200-900 - p g/mL ?LAB: Prom Thiopurine Metabolites* ? Value Reference Range ?Prom Thiopurine Metabolites SEE NOTE - Notes: Continue the Azathioprine with two of the 75mg pills daily?? * Immunizations:? Influenza (Not administered - Refused: Patient decision) * Procedure Codes:?1036F TOBAC CO [id number] BP SCR NOT PRFRM REC REASON NOS * Follow Up:?6 Months * * Sign off status: Completed true * Provider:?J Luis Trivedi MD Date:? 024 Generated for Padmini cruz/Dejuan/eTransmalivia on:?12/22/2024 01:21 PM EDT History and Physical Notes * HPI (History of Present Illness) Category Sub-Category Detail Notes Category Not es incontinence I saw Parmjit in followup today in regard to his underlying history of Crohn's disease. Since I last saw Parmjit in May of 2023 he reports that he has continued to feel very well. He remains on azathioprine 150 mg daily. He denies any difficulties with abdominal pain, abdominal distention, diarrhea, constipation, hematochezia, nor melena. He enjoys a good appetite, without any significant heartburn or dysphagia. He denies any jaundice nor weight loss. He denies any fevers nor any other signs of infection. He reports compliance with his azathioprine and is compliant with office visits. However, he has not done any blood work since 2021 at which time he had a normal liver profile and CBC. Examination Category Sub-Category Detail Notes Category Not [...]
[2024-12-22 17:00] LABS: Alkaline Phosphatase 75 U/L (39-117)
== END 2024-12-22 11:43 | disposition home or self-care (01) ==
LOC: HO.LAB 11:42
PROVIDERS: PCP Internal Medicine; Visit Provider Internal Medicine
DX: K50.00 Crohn's disease of small intestine without complications (principal)
CPT/HCPCS: 36415; 80076; 85025

== ENCOUNTER 2025-06-02 16:38 | Outpatient (REF) | payer BC, SELFPAY ==
[2025-06-02 16:47] LABS: MANUAL DIFF FLAG NO
[2025-06-02 17:31] LABS: Hematocrit 44.6 % (42.0-52.0); Hemoglobin 14.6 g/dl (14.0-18.0); Imm Gran Abs Auto 0.02 X10*3/uL (0.00-0.03); Imm Gran Pct Auto 0.4 % (0.0-0.4); Lymphocytes Absolute Auto 1.2 X10*3/uL (1.2-4.9); Mean Corpuscular HGB Conc 32.7 g/dl (31.0-36.0); Mean Corpuscular Hemoglobin 32.2 pg (27.0-33.0); Mean Corpuscular Volume 98.5 fL (80.0-98.0); NRBC Abs Auto 0.000 X10*3/uL (0.0-0.012); NRBC Pct Auto 0.0 /100WBC (0.0-0.2); Platelet Count 256 X10*3/uL (160-400); Red Blood Count 4.53 X10*6/uL (4.60-5.80); White Blood Count 5.4 X10*3/uL (4.8-10.8)
[2025-06-02 17:50] LABS: Alanine Aminotransferase 19 U/L (0-40); Albumin Level 4.9 g/dL (3.5-5.0); Alkaline Phosphatase 76 U/L (39-117); Aspartate Amino Transferase 28 U/L (5-37); Total Protein 7.4 g/dL (6.5-8.0)
--- OUTSIDE RECORDS SUMMARY | 2025-06-02 19:29 | XMS_ITS | Encounter Summary ---
Author Organization [facility] Address [address] [place] [address] Phone Care Team Providers Care Molded Grid And Parts Inspector Name Role Phone Wilbur Nieto MD Primary Care Provider Jose amato Encounter Details Date Type Department Care Team (Late st Contact Info) Description 04/04/2017 Conversion Encounter [facility] - [address] [address] Social History Tobacco Use Types Packs/Day Years [...] on filedocumented in this encounter Care Teams Molded Grid And Parts Inspector Relationship Specialty Start Date End Date Wilbur Nieto MD PCP - General 03/29/17 11/20/22 documented as of this encounter
--- OUTSIDE RECORDS SUMMARY | 2025-06-02 19:29 | XMS_ITS | Patient Health Record ---
Author Organization [facility] Address [address] [place] [address] Care Team Providers Care Line Analyst Name Role Phone ENE LAZAR Primary Care Provider J Luis Rodriguez Unavailable [phone] Allergies No Known Allergies Results Component Value Reference Range Notes Complete Blood Count Auto Di ff Reviewed date:12/22/2024 05:54:54 PM Interpretation: Performing Lab:[facility], [address] [place] [phone] Notes/Report: White Blood Count 5.8 4.8-10.8 X10*3/uL [...] Auto 0.000 0.0-0.012 X10*3/uL Liver Panel Reviewed date:12/22/2024 05:54:33 PM Interpretation: Performing Lab:[address] [phone] Notes/Report: Bilirubin Total 1.5 0.0-1.0 mg/dL Bilirubin Direct 0.4 0.0-0.5 mg/dL Aspartate Amino Transferase 20 5-37 U/L Alanine Aminotransferase 14 0-40 U/L Total Protein 7.3 6.5-8.0 g/dL Albumin Level 4.6 3.5-5.0 g/dL Alkaline Phosphatase 75 39-117 U/L Complete Blood Count Auto Di ff (Not yet reviewed by provider) Interpretation: Performing Lab:[facility], [address] [place] [phone] Notes/Report: White Blood Count 5.4 4.8-10.8 X10*3/uL Red Blood Count 4.53 4.60-5.80 X10*6/uL Hemoglobin 14.6 14.0-18.0 g/dl Hematocrit 44.6 42.0-52.0 % Mean Corpuscular Volume 98.5 80.0-98.0 fL Mean Corpuscular Hemoglobin 32.2 27.0-33.0 pg Mean Corpuscular HGB Conc 32.7 31.0-36.0 g/dl Red Cell Distribution Width 13.2 11.0-16.0 % Platelet Count 256 160-400 X10*3/uL Mean Platelet Volume 10.2 9.4-12.4 fL Neutrophils Percent Auto 68.4 45-73 % Imm Gran Pct Auto 0.4 0.0-0.4 % Lymphocytes Percent Auto 22.2 20-40 % Monocytes Percent Auto 7.1 2-11 % Eosinophils Percent Auto 1.5 0-4 % Basophils Percent Auto 0.4 0-2 % NRBC Pct Auto 0.0 0.0-0.2 /100WBC Neutrophils Absolute Auto 3.7 2.0-8.3 x10*3/u L Imm Gran Abs Auto 0.02 0.00-0.03 X10*3/uL Lymphocytes Absolute Auto 1.2 1.2-4.9 X10*3/u L Monocytes Absolute Auto 0.4 0.1-1.2 X10*3/uL Eosinophils Absolute Auto 0.1 0.0-0.4 X10*3/u L Basophils Absolute Auto 0.0 0.0-0.2 X10*3/uL NRBC Abs Auto 0.000 0.0-0.012 X10*3/uL Liver Panel Reviewed date:06/02/2025 06:00:56 PM Interpretation: Performing Lab:[facility], [address] [place] [phone] Notes/Report: Bilirubin Total 1.7 0.0-1.0 mg/dL Bilirubin Direct 0.4 0.0-0.5 mg/dL Aspartate Amino Transferase 28 5-37 U/L Alanine Aminotransferase 19 0-40 U/L Total Protein 7.4 6.5-8.0 g/dL Albumin Level 4.9 3.5-5.0 g/dL Alkaline Phosphatase 76 39-117 U/L Reason For Referral No Information Medications Medication SIG (Take, Route, Fr equency, Duration) Notes Start Date End Date Status Tylenol 325 MG 1 tablet as needed O rally every 4 hrs PRN Active azaTHIOprine 75 MG 2 Orally Daily 01/14/2016 Active Immunizations Vaccine Route Administration Date Status Comme nts Influenza Unknown 06/29/2020 Refused Influenza Unknown 05/22/2023 Refused Influenza Unknown 11/20/2023 Refused Influenza Unknown 06/02/2025 Refused Problems Problem Type SNOMED Code ICD Code Onset Dates Problem Status W/U Status Risk Notes Problem Crohn's disease of small intestine (61951029) Crohn's disease of small intestine without complications (K50.00) Active confirmed Problem Intestinal obstruction due to Crohn's disease of small intestine (952371436657123 3) Crohn's disease of small intestine with intestinal obstruction (K50.012) Active confirmed Problem Therapeutic drug monitoring, quantitative (regime/therapy) (68277773) Encounter for therapeutic drug level monitoring (Z51.81) Active confirmed Problem Crohn's disease of small intestine (15544565) Crohns disease of small intestine without complication (K50.00) Active confirmed Problem Crohn's disease of small intestine (13682445) Crohn's disease of small intestine without complication (K50.00) Active confirmed Problem Crohn's disease of small intestine (21913070) Crohn's disease of small intestine with complication (K50.019) Active confirmed Vital Signs Temperature 98.2 degrees Fahrenheit 06/02/2025 Blood pressure diastolic 01 mm Hg 06/02/2025 Height 72.25 in 06/02/2025 Blood pressure systolic 001 mm Hg 06/02/2025 Weight 182 lbs 06/02/2025 BMI 24.51 kg/m2 06/02/2025 Encounters Encounter Location Date Provider Diagnosis [facility] [address] [place] [address] 06/02/2025 J Luis Trivedi Crohns disease of small intestine without complication K50.00 [facility] [address] [place] [address] 06/03/2024 J Luis Trivedi Crohns disease of small intestine without complication K50.00 [facility] [address] [place] [phone] 12/23/2024 J Luis Trivedi Crohn's disease of small intestine with intestinal obstruction K50.012 Assessments Encounter Date Diagnosis (ICD Code) Assessment Notes Treatment Notes Treatment Clinical Notes Section Notes 06/02/2025 Crohns disease of small intestine without complication (ICD-10 - K50.00) Continue the two 75mg Azathioprine pills every day Do the labs every other month Avoid a lot of roughage with raw bulky vegetbles, salads, etc 06/03/2024 Crohns disease of small intestine without [...] to keep you advised of his progress. 12/23/2024 Crohn's disease of small intestine with intestinal obstruction (ICD-10 - K50.012) Continue the same Azathioprine- - -2 of the 75mg pills every day Do the labs every other month Overall, Parmjit appears quite well. His Crohn's disease remains in clinical remission on the current regimen of the azathioprine. He has not needed any steroids since 2019. He is tolerating the azathioprine well without any adverse symptoms or other side effects based on his recent laboratories and history. I did advise him to continue the azathioprine on a long-term basis and to continue to do his CBC and liver profile at least every other month. We did review that he should stay on a relatively low residue diet given the small bowel Crohn's disease. If things remain well I will plan to see Parmjit in 6 months for a follow-up visit. I did advise him to certainly call prior to that if he has any problems or questions I can be of assistance with. Parmjit was comfortable with this plan. Thank you again for allowing me to participate in Parmjit's care. I shall continue to keep you advised of his progress. Plan Of Treatment Pending Test Test Name Order Date LIVER PROFILE 05/28/2014 LIVER PROFILE 12/18/2017 LIVER PROFILE 03/31/2013 LIVER PROFILE 02/02/2014 LIVER PROFILE 06/02/2025 LIVER PROFILE 06/13/2016 LIVER PROFILE 11/20/2023 LIVER PROFILE 11/20/2021 LIVER PROFILE 02/15/2021 LIVER PROFILE 03/10/2020 LIVER PROFILE 01/14/2017 LIVER PROFILE 04/26/2015 LIVER PROFILE 09/19/2022 LIVER PROFILE 08/04/2013 LIVER PROFILE 12/16/2014 LIVER PROFILE 05/09/2012 LIVER PROFILE 01/13/2019 LIVER PROFILE 05/18/2016 LIVER PROFILE 06/03/2024 LIVER PROFILE 04/05/2022 LIVER PROFILE 02/01/2016 LIVER PROFILE 05/22/2023 LIVER PROFILE 08/21/2021 LIVER PROFILE 06/29/2020 CRP 03/10/2020 CBC w DIFF 05/18/2016 CBC w DIFF 06/03/2024 CBC w DIFF 04/05/2022 CBC w DIFF 02/01/2016 CBC w DIFF 05/22/2023 CBC w DIFF 08/21/2021 CBC w DIFF 06/29/2020 CBC w DIFF 05/28/2014 CBC w DIFF 12/31/2020 CBC w DIFF 12/18/2017 CBC w DIFF 03/31/2013 CBC w DIFF 02/02/2014 CBC w DIFF 06/02/2025 CBC w DIFF 06/13/2016 CBC w DIFF 11/20/2023 CBC w DIFF 11/20/2021 CBC w DIFF 02/15/2021 CBC w DIFF 01/14/2017 CBC w DIFF 04/26/2015 CBC w DIFF 09/19/2022 CBC w DIFF 08/04/2013 CBC w DIFF 03/10/2020 CBC w DIFF 12/16/2014 CBC w DIFF 05/09/2012 CBC w DIFF 01/13/2019 SED RATE (ESR) 03/10/2020 PROMETHEUS THIOPURINE METABOLITES (TPMT) 12/11/2015 PROMETHEUS THIOPURINE METABOLITES (TPMT) 01/13/2019 PROMETHEUS THIOPURINE METABOLITES (TPMT) 05/18/2016 PROMETHEUS THIOPURINE METABOLITES (TPMT) 12/31/2020 PROMETHEUS THIOPURINE METABOLITES (TPMT) 12/18/2017 PROMETHEUS THIOPURINE METABOLITES (TPMT) 06/13/2016 PROMETHEUS THIOPURINE METABOLITES (TPMT) 01/14/2017 PROMETHEUS TPMT ENZYME 12/11/2015 PROMETHEUS TPMT GENETICS 12/11/2015 Complete Blood Count Auto Diff 10/15/202 5 Liver Panel 12/31/2020 Vitamin B12 04/05/2022 Prom Thiopurine Metabolites 11/20/2021 Next Appt Details Provider Name:J Luis Trivedi , 12/29/2025 04:00:00 PM, [address] [facility], [address], [place], [address], Insurance Providers Payer Name Payer Address Payer Phone Subscriber Number Group Number Insured Name Patient Relationship to Insured Coverage Start Date Coverage End Date [facility] [address] [place], [place] [id number] [phone] [id number] PAUL RICH Self - patient is the insured Medical (General) History Medical History History ICD Code Crohn's disease-dx'd in 02/05 09 with colonoscopy revealing ileal involvement, but a normal colon. He was on a course of prednisone at that time, but started azathioprine in 01/2009 Denies MS,DM,CVA,Lung disease,renal dise ase Small bowel series 04/2013 wi th active Crohn's, ileal fistulae, and some narrowing of TI-no obstruction- started on Humira injections in fall but stopped [...]
--- OUTSIDE RECORDS SUMMARY | 2025-06-02 19:29 | XMS_ITS | Clinical Summary ---
Author Organization [facility] Address [address] [place], [place] [phone] Phone Care Team Providers Care Syrup Filterer Name Role Phone Unavailable Primary Care Provider [...] of 2 - 13+ 2-dose series) 2002 HPV Vaccines (1 - 3-dose SCDM series) 2016 Influenza Vaccines (#1) 2025 06/07/20 05, 06/15/2004, 06/23/2002, Additional history exists COVID-19 Vaccine (2024- season) 2025 HIB Vaccines Aged Out 07/19/1990, 03/19/1990 No lo nger eligible based on patient's age to complete this topic IPV Vaccines Completed 12/17/1994, 08/1990, 04/19/1990, Additional history exists MMR Vaccines Completed 12/17/1994, 03/19/1991 Hepatitis B Vaccines Completed 07/02/2001, 12/30/2000, 11/20/2000 Hepatitis A Vaccines Aged Out No long [...]
== END 2025-06-02 16:39 | disposition home or self-care (01) ==
LOC: HO.LAB 16:38
PROVIDERS: Visit Provider Internal Medicine
DX: K50.00 Crohn's disease of small intestine without complications (principal)
CPT/HCPCS: 36415; 80076; 85025

== ENCOUNTER 2025-07-22 10:18 | Outpatient (AMB) | payer BC, SELFPAY ==
--- NOTE | 2025-07-22 10:21 | A.OFFPC_ITS ---
Vital Signs 07/22/25 10:25 Height 6 ft Weight 181 lb BMI 24.5 BP 122/80 Blood Pressure Location Rt brachial Position Sitting Pulse 95 Pulse Source Pulse Oximeter Temp 97.8 F Temp Source Temporal Artery Scan Pulse Oximetry (%) 99 Oxygen Delivery Method Room Air Intake Visit Reasons: New Patient YUNIOR Dr Mcknight Vehicle Inspector Required: No Accompanied by: Self / Same As Patient Allergies Iodinated Contrast Media (IV CONTRAST) Adverse Reaction (Unknown, Verified 07/22/25 10:21) NAUSEA & VOMITING Medication List - Last Reconciled 07/22/25 by Hermes Goddard MD azathioprine 150 mg PO DAILY Tobacco use date assessed: 07/22/25 Dental Screening Dental Screen Date: 07/22/25 Did you have a dental visit in the last 12 months?: No Did you have a dental problem in the last 6 months where you did not have access to dental care?: No HPI HPI Comments History of Present Illness Details History of Present Illness The patient is a 34 year old male presenting for an annual physical exam and medication refill. The patient has a history of Crohn's disease, which is managed by Dr. Trivedi and has been quiescent. He is on azathioprine 150 mg daily. His last flare-up was f lise years ago and did not require hospitalization. A prior flare-up in early 2016 necessitated a hospital stay with steroid treatment. The diagnosis was made at age 18 via colonoscopy, and his specialist has not indicated another is currently necessary. The patient has an unclear history of an allergic reaction to contrast media, where he experienced nausea and an urge to vomit during a prior diagnostic workup for Crohn's disease. He is uncertain if the symptoms were from the contrast or his underlying illness at the time. The patient reports his mood is okay but has been feeling down due to a few recent deaths in the family and the holiday season. A depression screen was negative for suicidal ideation. Medical History: - Crohn's disease, diagnosed at age 18 - Unclear allergy to contrast media - Hospitalization in 2016 for Crohn's fl are-up - History of COVID-19 infection with mil d symptoms Surgical History: - No surgeries reported Medications: - Azathioprine 150 mg daily for Crohn's disease Family History: - Grandmother: Ovarian cancer - Grandparents: Diabetes - Uncle (not by blood): Liver and pancre as cancer Diagnostic Results: - Colonoscopy: Performed at age 18, nara frazier led to the diagnosis of Crohn's disease. 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 - Housing: Reports having a stable place to stay. - Substance Use: Denies use of tobacco, alcohol, marijuana, heroin, or cocaine. - Social Support: Reports feeling down d ue to recent family deaths and holiday- related stress. ON LICENSE OF [facility] Medical History (Updated 07/22/25 @ 10:50 by Hermes Goddard MD) Crohn disease Annual physical exam Family History (Updated 07/22/25 @ 10:30 by Kayla Tang MA) Mother No problems noted. Father No problems noted. Social History Housing: House Patient Tobacco Use Status: Never used Tobacco e-Cigarette/Vaping Use: Never Used service: No Current occupational status: employed Cognitive needs: No Hearing needs: No Vision needs: Yes (Rx glasses) Questionnaire PHQ-9 Over the last 2 weeks, how often have you been bothered by any of the following problems? 1. Little interest or pleasure in doing things: not at all 2. Feeling down, depressed, or hopeless: not at all 3. Trouble falling or staying asleep, or sleeping too much: not at all 4. Feeling tired or having little energy: not at all 5. Poor appetite or overeating: not at all 6. Feeling bad about yourself - or that you are a failure or have let yourself or your family down: not at all 7. Trouble concentrating on things, such as reading the newspaper or watching television: not at all 8. Moving or speaking so slowly that other people could have noticed. Or the opposite - being so fidgety or restless that you have been moving around a lot more than usual: not at all 9. Thoughts that you would be better off or of hurting yourself in some way: not at all Total score: 0 Depression Screening Interpretation: Negative Depression Screening Done: Yes 03641 - PHQ-9 Billing: Yes Source: Developed by Drs. J Luis Fowler, Tesha Yan, Easton Aly and colleagues, with an educational chepe from [employer]. Thrive Questionnaire Date Thrive assessed: 07/22/25 I am a: Patient Within the past 12 months, did the food you bought not last and you didn't have the money to get more?: Never true Within the past 12 months, did you worry whether your food would run out before you got money to buy more?: Never true Do you have trouble paying for medicines?: No Do you have trouble getting transportation to medical appointments?: No Do you have trouble paying your heating and electricity bill?: No Do you have trouble taking care of your child, family member or friend?: No Do you have trouble with day-to-day activities such as bathing, preparing meals, shopping, managing finances, etc.?: No Are you currently unemployed and looking for a job?: No Are you interested in more education?: No THRIVE Score: 0 AUDIT C Alcohol Use Questionnaire (AUDIT-C) 1. How often do you have a drink containing alcohol?: Never 3. How often do you have six or more drinks on one occasion?: Never Total Score: 0 Score Reviewed/Action Taken: Yes JAMES-7 AMB Questionnaire JAMES-7 Date JAMES - 7 assessed: 07/22/25 Feeling nervous, anxious, or on edge: 0 = Not at all Not being able to stop or control worryin = Not at all Worrying too much about different things: 0 = Not at all Trouble relaxin = Not at all Being so restless that it is hard to sit still: 0 = Not at all Becoming easily annoyed or irritable: 0 = Not at all Feeling afraid as if something awful might happen: 0 = Not at all Total JAMES-7 score (0-4 normal; 5-9 mild; 10-14 moderate; 15-21 severe): 0 Source: Developed by Drs. J Luis Fowler, Tesha Yan, Easton Aly and colleagues, with an educational chepe from [employer]. AJMES-7 Assessment Billing JAMES-7 Assessment Tool: JAMES-7 Assessment 61814 Review of Systems Narrative Review of Systems - Gastrointestinal: Denies current flare-up symptoms; his Crohn's disease is reported as quiet. - Musculoskeletal: Reports occasional soreness from work but denies any other pain. - Psychiatric: Reports feeling a little down due to recent deaths and the holidays, but denies anxiety or thoughts of self-harm. - Allergic/Immunologic: Reports resolved childhood allergies to dogs and cats and an uncertain reaction to contrast media. - Skin: Denies any skin lesions. All systems reviewed & are unremarkable except as reviewed in HPI and above Physical exam (Primary Care) Vital Signs: Last Vital Signs Temp 97.8 F 07/22/25 10:25 Pulse 95 07/22/25 10:25 BP 122/80 07/22/25 10:25 Pulse Ox 99 07/22/25 10:25 Oxygen Delivery Method Room Air 07/22/25 10:25 BMI result Body Mass Index 24.5 Tobacco/Smoking Status: Tobacco use Status Tobacco use date assessed 07/22/25 07/22/25 10:22 Patient Tobacco Use Status Never used Tobacco 07/22/25 10:22 e-Cigarette/Vaping Use Never Used 07/22/25 10:22 PHQ-9: PHQ-9 Score PHQ-9: Total score 0 07/22/25 10:39 Depression Screening Interpretation: Negative Thrive Assessment: Date of Thrive Assessment Date Thrive assessed 07/22/25 07/22/25 10:22 Narrative Physical Exam General: Alert and oriented, Well nourished, No acute distress. Eye: Pupils are equal, round and reactive to light, Intact accommodation, Extraocular movements are intact, Normal conjunctiva, Vision unchanged. HENT: Normocephalic, Atraumatic, Tympanic membranes are clear, Normal hearing, Oral mucosa is moist, No pharyngeal erythema, Ear canals patent. Respiratory: Lungs CTA bilaterally, No wheeze, Respirations are non-labored. Cardiovascular: Regular rate, Regular rhythm, S1 auscultated, S2 auscultated, No murmur, Good pulses equal in all extremities, Normal peripheral perfusion, No edema. Gastrointestinal: Soft, Non-tender, Non-distended, Normal bowel sounds, No organomegaly. Musculoskeletal: Normal range of motion, Normal strength, No tenderness, No swelling, No deformity, Normal gait. Integumentary: Warm, Dry, Yoe, Intact. Neurologic: Alert, Oriented, Normal sensory, Normal motor function, No focal defects, Cranial Nerves II-XII are grossly intact, Normal deep tendon reflexes. Psychiatric: Cooperative, Appropriate mood & affect, Normal judgment, Mood slightly affected by recent bereavements, No anxiety, Depression screen negative. Coding Level of Care Code New Pt Level 4 (31390) New Pt Prev Care 18-39yr(68074 Diagnoses Crohn's disease with other complication, unspecified gastrointestinal tract location K50.918 Digestive disease complication type: other complication Gastrointestinal tract location: unspecified location Annual physical exam Z00.00 Additional Codes JAMES-7 Assessment Billing - JAMES-7 Assessment Tool: JAMES-7 Assessment 31175 ([id number]) PHQ-9 - 65631 - PHQ-9 Billing: Yes ([id number]) Comment [id number] Assessment & Plan Assessment & Plan (1) Crohn disease: Comment: - The condition is stable and quiescent on azathioprine 150 mg daily. - The plan is to refill azathioprine 150 mg tablets, three times daily for a 90- day supply. - The patient will continue with blood work every two months as per his merchandise processor, Dr. Trivedi. Code(s): K50.90 - Crohn's disease, unspecified, without complications Category: Medical Qualifiers: Digestive disease complication type: other complication Gastrointestinal tract location: unspecified location Qualified Code(s): K50.918 - Crohn's disease, unspecified, with other complication (2) Annual physical exam: Comment: - The patient is due for his annual physical. - A comprehensive panel of labs will be ordered, including a CBC, electrolytes, screenings for hepatitis, HIV, and syphilis, and blood sugar levels. - Given his azathioprine use, an iron profile, vitamin B12, and folate level will also be checked. - A urinalysis will be performed. - Counseling was provided on the importance of flu and COVID-19 vaccinations, especially while on immunosuppressants, but the patient declined. Code(s): Z00.00 - Encounter for general adult medical examination without abnormal findings Category: Medical Plan: Health Maintenance: - Lab work ordered for annual screening?: electrolytes, CBC, hepatitis panel, HIV, syphilis, and blood sugar. - Medication monitoring labs ordered: Iron profile, vitamin B12, and folate levels. - A urinalysis was ordered. - Immunizations: Recommended flu and COVID-19 shots, which the patient declined. - Follow-up: Recommend annual physical exam. Patient was informed and verbally consented to the use of an ambient scribe for clinic note documentation during this visit. Vital signs reviewed. Comprehensive history, review of systems, and physical exam completed. Medications, allergies, and problem list reviewed and updated. Counseling provided on nutrition, regular exercise, sleep hygiene, and moderation of alcohol use. Discussed age-appropriate screenings (mammogram, colonoscopy, Pap, bone density) and immunizations (flu, COVID, shingles, Tdap). Screened for depression, fall risk, and home safety; no current concerns. Discussed stress management, dental and vision care, and importance of ongoing preventive follow-up. Routine labs ordered for metabolic and lipid screening. Patient educated on healthy lifestyle and agrees with the plan. Plan I have reviewed the patient's history, including his stable Crohn's disease managed with azathioprine under the care of a specialist. I discussed the plan for his annual physical, which includes ordering a comprehensive panel of blood work to screen for various conditions and to monitor for any side effects of his medication. I recommended he receive the flu and COVID-19 vaccines, particularly because of his immunosuppressant therapy, but he declined at this visit. I have refilled his azathioprine prescription as requested. I advised him to proceed to the lab for his blood draw and informed him that we will call with any abnormal results; otherwise, no news is good news. He should return in one year for a follow-up or call sooner if any issues arise. Orders: Orders Lipid Panel Today Z00.00 - Encounter for general adult medical examination without abnormal findings Microalbumin, Random (w Creat) Today Z00.00 - Encounter for general adult medical examination without abnormal findings Complete Blood Count Auto Diff Today Z00.00 - Encounter for general adult medical examination without abnormal findings Comprehensive Met. Panel Today Z00.00 - Encounter for general adult medical examination without abnormal findings Hemoglobin A1c Today Z00.00 - Encounter for general adult medical examination without abnormal findings Hepatitis A,B,C Profile Today Z00.00 - Encounter for general adult medical examination without abnormal findings HIV Ab/Ag Today Z00.00 - Encounter for general adult medical examination without abnormal findings Syphilis Screen Today Z00.00 - Encounter for general adult medical examination without abnormal findings TSH reflex Free T4 Today Z00.00 - Encounter for general adult medical examination without abnormal findings Vitamin D 25-OH Total Today Z00.00 - Encounter for general adult medical examination without abnormal findings IRON PROFILE Today Z00.00 - Encounter for general adult medical examination wit hout abnormal findings Vitamin B12 and Folate Today Z00.00 - Encounter for general adult medical examination without abnormal findings Medications: New azathioprine 150 mg (2 x 75 mg) PO DAILY 90 tabs 3RF Patient Instructions: - Please go to the lab in [address] [place] [address] [place] to have your blood drawn today. - Continue taking your azathioprine 150 mg every day. Your prescription has been refilled. - We will call you if any of your lab results are abnormal. If you don't receive a call, that means your results are normal. - We recommend you get your flu and COVID-19 shots, especially since you are taking a medication that affects your immune system. - Please schedule a follow-up appointment for your next annual physical in one year. If any issues come up before then, please give our office a call.
[2025-07-22 10:25] VITALS: BP 122/80; PULSE 95; TEMP 36.6; O2SAT 99; BMI 24.5
--- OUTSIDE RECORDS SUMMARY | 2025-07-22 12:29 | XMS_ITS | Clinical Summary ---
Author Organization [facility] Address [address] [place], [place] [id number] Phone Care Team Providers Care Receptionist Clerk Name Role Phone Unavailable Primary Care Provider [...]
--- OUTSIDE RECORDS SUMMARY | 2025-07-22 12:29 | XMS_ITS | Patient Health Record ---
Author Organization [facility] Address [address] [place] [address] Care Team Providers Care Lieutenant General Name Role Phone ENE LAZAR Primary Care Provider J Luis Rodriguez Unavailable [phone] Allergies No Known Allergies Results Component Value Reference Range Flag Notes Complete Blood Count Auto Di ff Reviewed date:12/22/2024 05:54:54 PM Interpretation: Performing Lab:[facility], [address] [place] [phone] Notes/Report: White Blood Count 5.8 4.8-10.8 X10*3/uL N Red Blood Count 4.27 4.60-5.80 X10*6/uL L Hemoglobin 14.6 14.0-18.0 g/dl N Hematocrit 41.6 42.0-52.0 % L Mean Corpuscular Volume 97.4 80.0-98.0 fL N Mean Corpuscular Hemoglobin 34.2 27.0-33.0 pg H Mean Corpuscular HGB Conc 35.1 31.0-36.0 g/dl N Red Cell Distribution Width 13.4 11.0-16.0 % N Platelet Count 280 160-400 X10*3/uL N Mean Platelet Volume 9.5 9.4-12.4 fL N Neutrophils Percent Auto 79.8 45-73 % H Imm Gran Pct Auto 0.3 0.0-0.4 % N Lymphocytes Percent Auto 13.7 20-40 % L Monocytes Percent Auto 5.0 2-11 % N Eosinophils Percent Auto 0.9 0-4 % N Basophils Percent Auto 0.3 0-2 % N NRBC Pct Auto 0.0 0.0-0.2 /100WBC N Neutrophils Absolute Auto 4.6 2.0-8.3 x10*3/uL N Imm Gran Abs Auto 0.02 0.00-0.03 X10*3/uL N Lymphocytes Absolute Auto 0.8 1.2-4.9 X10*3/uL L Monocytes Absolute Auto 0.3 0.1-1.2 X10*3/uL N Eosinophils Absolute Auto 0.1 0.0-0.4 X10*3/uL N Basophils Absolute Auto 0.0 0.0-0.2 X10*3/uL N NRBC Abs Auto 0.000 0.0-0.012 X10*3/uL N Complete Blood Count Auto Di ff (Not yet reviewed by provider) Interpretation: Performing Lab:[facility], [address] [place] [phone] Notes/Report: White Blood Count 5.4 4.8-10.8 X10*3/uL N Red Blood Count 4.53 4.60-5.80 X10*6/uL L Hemoglobin 14.6 14.0-18.0 g/dl N Hematocrit 44.6 42.0-52.0 % N Mean Corpuscular Volume 98.5 80.0-98.0 fL H Mean Corpuscular Hemoglobin 32.2 27.0-33.0 pg N Mean Corpuscular HGB Conc 32.7 31.0-36.0 g/dl N Red Cell Distribution Width 13.2 11.0-16.0 % N Platelet Count 256 160-400 X10*3/uL N Mean Platelet Volume 10.2 9.4-12.4 fL N Neutrophils Percent Auto 68.4 45-73 % N Imm Gran Pct Auto 0.4 0.0-0.4 % N Lymphocytes Percent Auto 22.2 20-40 % N Monocytes Percent Auto 7.1 2-11 % N Eosinophils Percent Auto 1.5 0-4 % N Basophils Percent Auto 0.4 0-2 % N NRBC Pct Auto 0.0 0.0-0.2 /100WBC N Neutrophils Absolute Auto 3.7 2.0-8.3 x10*3/uL N Imm Gran Abs Auto 0.02 0.00-0.03 X10*3/uL N Lymphocytes Absolute Auto 1.2 1.2-4.9 X10*3/uL N Monocytes Absolute Auto 0.4 0.1-1.2 X10*3/uL N Eosinophils Absolute Auto 0.1 0.0-0.4 X10*3/uL N Basophils Absolute Auto 0.0 0.0-0.2 X10*3/uL N NRBC Abs Auto 0.000 0.0-0.012 X10*3/uL N Liver Panel Reviewed date:06/02/2025 06:00:56 PM Interpretation: Performing Lab:[facility], [address] [place] [phone] Notes/Report: Bilirubin Total 1.7 0.0-1.0 mg/dL H Bilirubin Direct 0.4 0.0-0.5 mg/dL N Aspartate Amino Transferase 28 5-37 U/L N Alanine Aminotransferase 19 0-40 U/L N Total Protein 7.4 6.5-8.0 g/dL N Albumin Level 4.9 3.5-5.0 g/dL N Alkaline Phosphatase 76 39-117 U/L N Liver Panel Reviewed date:12/22/2024 05:54:33 PM Interpretation: Performing Lab:[facility], [address] [place] [phone] Notes/Report: Bilirubin Total 1.5 0.0-1.0 mg/dL H Bilirubin Direct 0.4 0.0-0.5 mg/dL N Aspartate Amino Transferase 20 5-37 U/L N Alanine Aminotransferase 14 0-40 U/L N Total Protein 7.3 6.5-8.0 g/dL N Albumin Level 4.6 3.5-5.0 g/dL N Alkaline Phosphatase 75 39-117 U/L N Reason For Referral No Information Medications Medication SIG (Take, Route, Frequency, Duration) Notes Start Date End Date Status Tylenol 325 MG Tablet 1 tablet as needed Orally every 4 hrs PRN Active azaTHIOprine 75 MG Tablet 2 Orally Daily 6 Active Immunizations Vaccine Route Administration Date Status Comme nts Influenza Unknown 06/29/2020 Refused Influenza Unknown 05/22/2023 Refused Influenza Unknown 11/20/2023 Refused Influenza Unknown 06/02/2025 Refused Social History Social History Additional Details Category Social Info Options Details Miscellaneous: Marital status: single 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 Nonsmoker, no significant alcohol. Patient is a [employer] student, getting his Masters in Criminal Justice. Nonsmoker, no significant alcohol. Patient is a [employer] student, getting his Masters in Criminal Justice. Nonsmoker, no significant alcohol. Patient just recieved his Masters in Criminal Justice in 07/2013. Nonsmoker, no significant alcohol. Patient just recieved his Masters in Criminal Justice in 07/2013. Nonsmoker, no significant alcohol. Patient recieved his Masters in Criminal Justice in 07/2013. Nonsmoker, no significant alcohol. Patient recieved his Masters in Criminal Justice in 07/2013. Nonsmoker, no significant alcohol. Patient recieved his Masters in Criminal Justice in 07/2013. Nonsmoker, no significant alcohol. Patient recieved his Masters in Criminal Justice in 07/2013. Nonsmoker, no significant alcohol. Patient recieved his Masters in Criminal Justice in 07/2013. Nonsmoker, no significant alcohol. Patient recieved his Masters in Criminal Justice in 07/2013. Nonsmoker, no significant alcohol. Patient recieved his Masters in Criminal Justice in 07/2013. Nonsmoker, no significant alcohol. Patient recieved his Masters in Criminal Justice in 07/2013. Nonsmoker, no significant alcohol. Patient recieved his Masters in Criminal Justice in 07/2013. Nonsmoker, no significant alcohol. Patient recieved his Masters in Criminal Justice in 07/2013. Nonsmoker, no significant alcohol. Patient recieved his Masters in Criminal Justice in 07/2013. Nonsmoker, no significant alcohol. Patient recieved his Masters in Criminal Justice in 07/2013. Nonsmoker, no significant alcohol. Patient recieved his Masters in Criminal Justice in 07/2013. Nonsmoker, no significant alcohol. Patient recieved his Masters in Criminal Justice in 07/2013. Nonsmoker, no significant alcohol. Problems Problem Type SNOMED Code ICD Code Onset Dates Problem Status W/U Status Risk Notes Problem Crohn's disease of small intestine (04506523) Crohn's disease of small intestine without complications (K50.00) Active confirmed Problem Intestinal obstruction due to Crohn's disease of small intestine (782024828450581 3) Crohn's disease of small intestine with intestinal obstruction (K50.012) Active confirmed Problem Therapeutic drug monitoring, quantitative (regime/therapy) (23283793) Encounter for therapeutic drug level monitoring (Z51.81) Active confirmed Problem Crohn's disease of small intestine (20370811) Crohns disease of small intestine without complication (K50.00) Active confirmed Problem Crohn's disease of small intestine (22730440) Crohn's disease of small intestine without complication (K50.00) Active confirmed Problem Crohn's disease of small intestine (12036506) Crohn's disease of small intestine with complication (K50.019) Active confirmed Vital Signs Temperature 98.2 degrees Fahrenheit 06/02/2025 Blood pressure diastolic 01 mm Hg 06/02/2025 Height 72.25 in 06/02/2025 Blood pressure systolic 001 mm Hg 06/02/2025 Weight 182 lbs 06/02/2025 BMI 24.51 kg/m2 06/02/2025 Encounters Encounter Location Date Provider Diagnosis [facility] [address] [place] [phone] 12/23/2024 J Luis Trivedi Crohn's disease of small intestine with intestinal obstruction K50.012 [facility] [address] [place] [id number] 06/02/2025 J Luis Trivedi Crohns disease of small intestine without complication K50.00 Assessments Encounter Date Diagnosis (ICD Code) Assessment Notes Treatment Notes Treatment Clinical Notes Section Notes 12/23/2024 Crohn's disease of small intestine with [...] remain well I will plan to see Parmjti in 6 months for a follow-up visit. I did advise him to certainly call prior to that if he has any problems or questions I can be of assistance with. Parmjit was comfortable with this plan. Thank you again for allowing me to participate in Parmjit's care. I shall continue to keep you advised of his progress. 06/02/2025 Crohns disease of small intestine without complication (ICD-10 - K50.00) Continue the two 75mg Azathioprine pills every day Do the labs every other month Avoid a lot of roughage with raw bulky vegetbles, salads, etc Overall, Parmjit appears quite well and his Crohn's disease appears to be in clinical remission on his current medical regimen. I did advise him to continue the 150 mg of azathioprine daily. However I did advise him that he definitely needs to do some blood work and we will check a CBC and liver profile today, but I did advise him that I would like him to do that at least every other month. I gave him a new lab order for that. I did advise him that he should try to stay on a relatively low residue diet and avoid raw vegetables and things of that nature given the Crohn's disease of the small bowel. If things remain well I will plan to see him in 6 months for a follow-up visit. I did advise him to certainly contact me prior to that if he has any problems or questions I can be of assistance with. Parmjit was very comfortable with this plan. Thank you again for allowing me to participate in Parmjit's care. I shall continue to keep you advised of his progress. Plan Of Treatment Pending Test Test Name Order Date LIVER PROFILE 05/09/2012 LIVER PROFILE 03/31/2013 LIVER PROFILE 08/04/2013 LIVER PROFILE 05/28/2014 LIVER PROFILE 04/26/2015 LIVER PROFILE 02/01/2016 LIVER PROFILE 06/13/2016 LIVER PROFILE 06/29/2020 LIVER PROFILE 02/15/2021 LIVER PROFILE 04/05/2022 LIVER PROFILE 09/19/2022 LIVER PROFILE 05/22/2023 LIVER PROFILE 11/20/2023 LIVER PROFILE 06/03/2024 LIVER PROFILE 06/02/2025 LIVER PROFILE 02/02/2014 LIVER PROFILE 12/16/2014 LIVER PROFILE 05/18/2016 LIVER PROFILE 01/14/2017 LIVER PROFILE 12/18/2017 LIVER PROFILE 01/13/2019 LIVER PROFILE 03/10/2020 LIVER PROFILE 08/21/2021 LIVER PROFILE 11/20/2021 CRP 03/10/2020 CBC w DIFF 12/31/2020 CBC w DIFF 01/13/2019 CBC w DIFF 08/21/2021 CBC w DIFF 11/20/2021 CBC w DIFF 03/10/2020 CBC w DIFF 01/14/2017 CBC w DIFF 12/18/2017 CBC w DIFF 12/16/2014 CBC w DIFF 09/19/2022 CBC w DIFF 05/18/2016 CBC w DIFF 02/02/2014 CBC w DIFF 06/02/2025 CBC w DIFF 06/03/2024 CBC w DIFF 11/20/2023 CBC w DIFF 05/22/2023 CBC w DIFF 04/05/2022 CBC w DIFF 02/15/2021 CBC w DIFF 05/09/2012 CBC w DIFF 06/29/2020 CBC w DIFF 06/13/2016 CBC w DIFF 02/01/2016 CBC w DIFF 04/26/2015 CBC w DIFF 05/28/2014 CBC w DIFF 08/04/2013 CBC w DIFF 03/31/2013 SED RATE (ESR) 03/10/2020 PROMETHEUS THIOPURINE METABOLITES (TPMT) 01/13/2019 PROMETHEUS THIOPURINE METABOLITES (TPMT) 12/31/2020 PROMETHEUS THIOPURINE METABOLITES (TPMT) 12/11/2015 PROMETHEUS THIOPURINE METABOLITES (TPMT) 12/18/2017 PROMETHEUS THIOPURINE METABOLITES (TPMT) 01/14/2017 PROMETHEUS THIOPURINE METABOLITES (TPMT) 05/18/2016 PROMETHEUS THIOPURINE METABOLITES (TPMT) 06/13/2016 PROMETHEUS TPMT ENZYME 12/11/2015 PROMETHEUS TPMT GENETICS 12/11/2015 Complete Blood Count Auto Diff Liver Panel 12/31/2020 Vitamin B12 04/05/2022 Prom Thiopurine Metabolites 11/20/2021 Next Appt Details Provider Name:J Luis Rivas Trivedi , 12/29/2025 04:00:00 PM, [address] [place] [address], [place] [address], [place], [phone], Insurance Providers Payer Name Payer Address Payer Phone Subscriber Number Group Number Insured Name Patient Relationship to Insured Coverage Start Date Coverage End Date [facility] [address] [place], [place] [id number] PAUL RICH Self - patient is the insured Medical (General) History Medical History History ICD Code Crohn's disease-dx'd in 02/05 09 with colonoscopy revealing ileal involvement, but a normal colon. He was on a course of prednisone at that time, but started azathioprine in 01/2009 Denies MD,DM,CVA,Lung disease,renal dise ase Small bowel series 04/2013 [...]
--- OUTSIDE RECORDS SUMMARY | 2025-07-22 12:29 | XMS_ITS | Clinical Summary ---
Author Organization [facility] Address [address] [place] [address] Care Team Providers Care Contract Mail Carrier Name Role Phone Unavailable Primary Care Provider [...] of 3 - 19+ 3-dose series) 2008 HPV Vaccines (1 - 3-dose SCD M series) 2016 Depression Screening 08/19/2024 COVID-19 Vaccine (1 - 2024-2 6 season) 2025 Influenza Vaccine (#1) 2025 RSV Immunization Adult Patie nts (1 - 1-dose 75+ series) 2064 HIB Vaccines Aged Out No longer eligi [...] 5 Years) and At-Risk Patients (6 to 49 Years) Aged Out No longer eligible b ased on patient's age to complete this topic RSV Immunization Patients Un ebonie 20 months Aged Out No longer eligible b ased on patient's age to complete this topic Varicella Vaccines Aged Out No longer eligible based on patient's age to complete this topic
--- OUTSIDE RECORDS SUMMARY | 2025-07-22 12:29 | XMS_ITS | Encounter Summary ---
Author Organization [facility] Address [address] [place] [phone] Phone Care Team Providers Care Manager Market Intelligence Name Role Phone Wilbur Nieto MD Primary Care Provider Jose amato Encounter Details Date Type Department Care Team (Late st Contact Info) Description 04/04/2017 Conversion Encounter [facility] - [address] [address] Social History Tobacco Use Types Packs/Day Years [...] on filedocumented in this encounter Care Teams Manager Market Intelligence Relationship Specialty Start Date End Date Wilbur Nieto MD PCP - General 03/29/17 11/20/22 documented as of this encounter
== END 2025-07-22 10:44 | disposition home or self-care (01) ==
PROVIDERS: PCP Student in an Organized Health Care Education/Training Program; Visit Provider Student in an Organized Health Care Education/Training Program
DX: Z00.00 Encounter for general adult medical examination without abnormal findings (principal); K50.918 Crohn's disease, unspecified, with other complication

== ENCOUNTER → 2025-07-22 10:18 | Outpatient (BNVA) | payer BC, SELFPAY | PROVIDERS: Visit Provider Student in an Organized Health Care Education/Training Program | DX: Z00.00 Encounter for general adult medical examination without abnormal findings (principal); K50.918 Crohn's disease, unspecified, with other complication; Z28.21 Immunization not carried out because of patient refusal; Z13.31 Encounter for screening for depression; Z13.39 Encounter for screening examination for other mental health and behavioral disorders | CPT/HCPCS: 96127 ==

== ENCOUNTER 2025-07-22 10:57 | Outpatient (REF) | payer BC, SELFPAY ==
[2025-07-22 13:40] LABS: MANUAL DIFF FLAG NO
[2025-07-22 13:48] LABS: Hematocrit 45.4 % (42.0-52.0); Hemoglobin 15.2 g/dl (14.0-18.0); Imm Gran Abs Auto 0.01 X10*3/uL (0.00-0.03); Imm Gran Pct Auto 0.2 % (0.0-0.4); Lymphocytes Absolute Auto 1.0 X10*3/uL (1.2-4.9); Mean Corpuscular HGB Conc 33.5 g/dl (31.0-36.0); Mean Corpuscular Hemoglobin 33.2 pg (27.0-33.0); Mean Corpuscular Volume 99.1 fL (80.0-98.0); NRBC Abs Auto 0.000 X10*3/uL (0.0-0.012); NRBC Pct Auto 0.0 /100WBC (0.0-0.2); Platelet Count 305 X10*3/uL (160-400); Red Blood Count 4.58 X10*6/uL (4.60-5.80); White Blood Count 5.7 X10*3/uL (4.8-10.8)
[2025-07-22 14:15] LABS: Microalbum/Creatinine Ratio Ur 7.7 ug/mg cr (<30)
[2025-07-22 14:27] LABS: Alanine Aminotransferase 18 U/L (0-40); Albumin Level 4.8 g/dL (3.5-5.0); Alkaline Phosphatase 82 U/L (39-117); Anion Gap 9 (12-20); Aspartate Amino Transferase 22 U/L (5-37); Blood Urea Nitrogen 15 mg/dL (9-16); Calcium 9.4 mg/dL (8.4-10.2); Carbon Dioxide 29 mmol/L (22-29); Chloride 106 mmol/L (96-108); Cholesterol 180 mg/dL (<200); Estimated Glomerular Filt Rate > 60; HDL Cholesterol 50 mg/dL (>40); Iron 93 mcg/dL (45-160); Percent Iron Saturation 33 % (15-50); Potassium 4.4 mmol/L (3.3-5.1); Sodium 140 mmol/L (135-145); Total Iron Binding Capacity 281 mcg/dL (228-428); Total Protein 7.5 g/dL (6.5-8.0); Triglycerides 73 mg/dL (<150); Unsaturated Iron Binding 188 ug/dL
[2025-07-22 14:53] LABS: Folate 11.3 ng/mL (> or = 4.0); Vitamin B12 368 pg/mL (200-900)
[2025-07-23 05:12] LABS: HBS Num1 1.43 mIU/mL (0-7.99); HBc Num1 0.07 S/CO (0.00-0.79); HBsAGNum1 0.64 S/CO (0.00-0.99); HIV Num 1 0.06 S/CO (0.00-0.99); Hepatitis A Antibody IgM 0.14 Index (0-0.79); Hepatitis B Surface Antigen Negative (Negative); ~HepC Num1 0.12 S/CO (0.00-0.79); ~Hepatitis A Antibody IgM Nonreactive (Nonreactive); ~Hepatitis B Surface Antibody NONREACTIVE (Nonreactive); ~Hepatitis C Antibody Nonreactive (Nonreactive)
[2025-07-23 06:02] LABS: Syphilis Screen Nonreactive (Nonreactive)
== END 2025-07-22 10:58 | disposition home or self-care (01) ==
LOC: HO.10HDL 10:57
PROVIDERS: Visit Provider Student in an Organized Health Care Education/Training Program
DX: Z00.00 Encounter for general adult medical examination without abnormal findings (principal); Z11.4 Encounter for screening for human immunodeficiency virus [HIV]; Z13.0 Encounter for screening for diseases of the blood and blood-forming organs and certain disorders involving the immune mechanism; Z13.29 Encounter for screening for other suspected endocrine disorder; Z13.1 Encounter for screening for diabetes mellitus; Z13.21 Encounter for screening for nutritional disorder; Z13.6 Encounter for screening for cardiovascular disorders
CPT/HCPCS: 36415; 80053; 80061; 82043; 82306; 82570; 82607; 82746; 83036; 83540; 84443; 85025; 86704; 86706; 86709; 86780; 86803; 87340; 87389